=== PATIENT | female | born 1945 | race Caucasian/White ===

== ENCOUNTER → 2016-12-08 | Outpatient (CLI) | payer MEDICARE, OTHER ==
[~2016-12-08] MED LIST: ATOR20TA PO; ESOM10SU PO; HYDR-2666 PO; PROP10TA PO; TEMA15CA PO; VALA500T PO; flexeril
--- NOTE | 2016-12-08 10:34 | KCIC ---
PROCEDURE Chest CT without contrast. HISTORY Tobacco abuse. Shortness of breath. Wheezing. TECHNIQUE Computed tomographic images of the chest were obtained without contrast. One or more of the following individualized dose reduction techniques were utilized for this examination: 1. Automated exposure control; 2. Adjustment of the mA and/or kV according to patient size; 3. Use of iterative reconstruction technique. COMPARISON None. FINDINGS The heart is normal in size. The aorta is normal in caliber. There is calcified atherosclerotic plaque involving the aorta and proximal aortic arch branch vessels. There are few enlarged mediastinal lymph nodes. For reference purposes, there is a precarinal lymph node measuring 1.8 cm. There are few calcified left hilar and subcarinal granulomas. There are peripherally calcified breast implants. There is increased density surrounding the right breast implant and along the right chest wall superior to the implant. There is moderate emphysema. There is no infiltrate, effusion or pneumothorax. There is a 6 mm ground-glass nodular opacity within the left upper lobe, possibly due to volume averaging of adjacent pulmonary vessels. There is a 1 cm ground-glass opacity within the posterior right upper lobe likely due to atelectasis or scarring. There are few small faint ground-glass opacities within the left lower lobe likely due to atelectasis or scarring, the largest of which measures 6 mm. There is a 4 mm nodule along the inferior left pleural fissure, likely due to an interfissural lymph node. Evaluation of the upper abdomen demonstrates prominent renal pelvis, likely due to extra renal pelves. The gallbladder is surgically absent. There are degenerative changes throughout the spine. There is no suspicious lytic or sclerotic osseous lesion. IMPRESSION 1. Moderate emphysema. 2. Small ground-glass and nodular opacities within both lungs, the majority of which are likely due to atelectasis or scarring. The largest nodule opacity measures 6 mm within the left upper lobe. Followup can be performed according to Fleischner society criteria. 3. Prominent mediastinal lymph nodes, the largest of which which measures 1.8 cm within the precarinal location. These may be reactive or physiologic. Attention at the time of followup can be performed to confirm stability. 4. Asymmetric increased right breast parenchymal density surrounding a breast implant. Correlate with mammography findings. In a low risk patient: <4mm- No follow up required. >4-6mm- 12 month follow up, if unchanged, no further follow up. >6-8mm- 6-12 month follow up, then at 18-24 months if no change. >8mm- 3, 9, 24 month follow up or consideration of PET/CT. In a high risk patient: <4mm- 12 month follow up, if unchanged then no further follow up. >4-6mm- 6-12 month follow up, then at 18-24 months if no change. >6-8mm- 3-6 month follow up, then at 9-12 months and 24 months if no change. >8mm- 3, 9, 24 month follow up or consideration of PET/CT. Electronically signed by: Ro Murphy (Dec 08, 2016 10:32:47)
== END | disposition home or self-care (01) ==
LOC: KCIC CT 10:03
PROVIDERS: ATTEND Family Medicine
DX: J43.9 Emphysema, unspecified (principal); Z72.0 Tobacco use
CPT/HCPCS: 71250

== ENCOUNTER → 2017-04-30 | Outpatient (CLI) | payer MEDICARE ==
[~2017-04-30] MED LIST changes: -HYDR-2666 PO; +HYDR-2758 PO
--- NOTE | 2017-04-30 13:30 | KCIC ---
CT chest without contrast History: Cough.. Lung nodules. Productive cough. Technique: No intravenous contrast per request. Multiplanar reformatted images were obtained. Comparison: December 08, 2016. Exposure: One or more of the following individualized dose reduction techniques were utilized for this examination: 1. Automated exposure control 2. Adjustment of the mA and/or kV according to patient size 3. Use of iterative reconstruction technique. Findings: Vascular structures: Limited exam without contrast. No evidence of aneurysm. Mild aortic vascular calcifications. Lymph nodes: Small mediastinal lymph nodes are again identified and appears stable since prior exam. Thyroid gland:Visualized aspect is unremarkable. Heart: No significant pericadial effusion. Pleural spaces: No significant effusion Lungs: Emphysematous disease again identified. Groundglass opacity in the left upper lobe is unchanged. Groundglass opacity in the posterior aspect of the right upper lobe is unchanged. Other faint areas of previously described groundglass opacity are stable. No new large mass or dominant airspace consolidation. Trachea and central airways: Patent Calcified breast implants are again demonstrated. Asymmetric parenchymal density at the right breast is again identified. Correlate with mammography. Bones: No destructive process Upper abdomen: Slices obtained through the upper most abdomen are limited by the noncontrast technique. The lowermost slices demonstrated some calcification in the abdominal aorta, potentially some displaced intima from aortic dissection. Impression: 1. Stable appearance of groundglass opacities in both lungs. 2. No acute findings. 3. Atherosclerotic changes of the aorta. Some calcification at the lower most aspect of the visualized abdominal aorta could represent calcification overlying some mural plaque or a chronic dissection. Aortic ultrasound or contrast-enhanced CT could further evaluate if indicated. Electronically signed by: Juwan Reed MD (04/30/2017 1:27 PM) [facility]
== END | disposition home or self-care (01) ==
LOC: KCIC CT 10:24
PROVIDERS: ATTEND Family Medicine
DX: I70.0 Atherosclerosis of aorta (principal); R91.8 Other nonspecific abnormal finding of lung field
CPT/HCPCS: 71250

== ENCOUNTER → 2017-05-07 | Outpatient (CLI) | payer MEDICARE ==
--- NOTE | 2017-05-07 16:18 | KCIC ---
SCAN OF ABDOMINAL AORTA History: Smoker, aortic disease Comparison: None. Findings: Multiple grayscale, color, and duplex spectral analysis waveform images of the abdominal aorta are submitted. Proximal abdominal aorta measured up to 2.9 cm maximal axial dimension, 2 cm greatest axial dimension at the mid segment, and 1.3 cm distally. Peak systolic velocities in centimeters per second are as follows: Proximal abdominal aorta 119, mid abdominal aorta 73, distal abdominal aorta 103, right iliac artery 104, left iliac artery 126. There is diffuse hyperechoic calcified plaque of the abdominal aorta. Right common iliac artery measured up to 0.4 cm, left 0.5 cm. Impression: 1. There is slightly ectatic proximal abdominal aorta up to 2.9 cm. There is diffuse plaque. Electronically signed by: Chapin Vera MD (05/07/2017 4:15 PM) [facility]
== END | disposition home or self-care (01) ==
LOC: KCIC US 15:02
PROVIDERS: ATTEND Family Medicine
DX: I70.0 Atherosclerosis of aorta (principal); F17.200 Nicotine dependence, unspecified, uncomplicated
CPT/HCPCS: 76770

== ENCOUNTER → 2017-05-07 | Outpatient (CLI) | payer MEDICARE | END | disposition home or self-care (01) | LOC: LAB 13:49 | PROVIDERS: ATTEND Internal Medicine Pulmonary Disease | DX: I10 Essential (primary) hypertension (principal); J18.9 Pneumonia, unspecified organism | CPT/HCPCS: 36415 ==

== ENCOUNTER → 2017-08-14 | Outpatient (CLI) | payer MEDICARE | END | disposition home or self-care (01) | LOC: KCIC MRI 09:44 | DX: M54.16 Radiculopathy, lumbar region (principal); R20.0 Anesthesia of skin | CPT/HCPCS: 72148 ==

== ENCOUNTER → 2017-08-25 | Outpatient (CLI) | payer MEDICARE ==
[~2017-08-25] MED LIST changes: -ATOR20TA PO; -ESOM10SU PO; -HYDR-2758 PO; +IOHEXOL 180 MG/ML 10 ML VIAL.; -PROP10TA PO; -TEMA15CA PO; -VALA500T PO; -flexeril; +methylPREDNISolone ACETATE 40 MG/ML VIAL.; +methylPREDNISolone ACETATE 80 MG/ML VIAL.
== END | disposition home or self-care (01) ==
LOC: PNCL 10:37
DX: M51.16 Intervertebral disc disorders with radiculopathy, lumbar region (principal); I10 Essential (primary) hypertension; H91.90 Unspecified hearing loss, unspecified ear; K21.9 Gastro-esophageal reflux disease without esophagitis; Z90.710 Acquired absence of both cervix and uterus; Z90.49 Acquired absence of other specified parts of digestive tract; Z98.890 Other specified postprocedural states; Z88.0 Allergy status to penicillin; Z88.2 Allergy status to sulfonamides
CPT/HCPCS: 62323; J1030; J1040

== ENCOUNTER → 2017-09-07 | Outpatient (CLI) | payer MEDICARE ==
[2017-09-07] MEDS: IOHEXOL 300 MG/ML 50 ML VIAL. IT (13:15)
[2017-09-07] MEDS: LIDOCAINE 1% Multi-Dose 20 ML VIAL. ID (13:15)
== END | disposition home or self-care (01) ==
LOC: KCIC 12:16
DX: M48.04 Spinal stenosis, thoracic region (principal); M25.78 Osteophyte, vertebrae; M51.34 Other intervertebral disc degeneration, thoracic region; M47.894 Other spondylosis, thoracic region; J43.9 Emphysema, unspecified
CPT/HCPCS: 72129; 72255; Q9967

== ENCOUNTER → 2017-09-15 | Outpatient (CLI) | payer MEDICARE | END | disposition home or self-care (01) | LOC: PNCL 09:41 | DX: M51.16 Intervertebral disc disorders with radiculopathy, lumbar region (principal); Z88.6 Allergy status to analgesic agent; Z88.1 Allergy status to other antibiotic agents; Z88.0 Allergy status to penicillin; Z88.2 Allergy status to sulfonamides | CPT/HCPCS: 62323; J1030; J1040; Q9965 ==

== ENCOUNTER → 2018-05-03 | Outpatient (CLI) | payer MEDICARE ==
[~2018-05-03] MED LIST changes: +ATOR20TA PO; +ESOM10SU PO; +GABA-585 PO; +HYDR-2758 PO; -IOHEXOL 180 MG/ML 10 ML VIAL.; +PROP10TA PO; +TEMA15CA PO; +VALA500T PO; +flexeril; -methylPREDNISolone ACETATE 40 MG/ML VIAL.; -methylPREDNISolone ACETATE 80 MG/ML VIAL.
--- NOTE | 2018-05-03 12:41 | KCIC ---
EXAM: CT Chest without IV contrast CLINICAL HISTORY: Lung nodule, follow-up COMPARISON: 04/30/2017 TECHNIQUE: CT of the chest without intravenous contrast. Axial, coronal and sagittal reformatted images were generated. ---PQRS compliance statement - One or more of the following individualized dose reduction techniques were utilized for this study: 1. Automated exposure control 2. Adjustment of the mA and/or kV according to patient size 3. Use of iterative reconstruction technique--- FINDINGS: Lack of intravenous contrast limits evaluation of solid organs, vasculature, and lymph nodes. Chest: Heart is not enlarged. Coronary artery calcifications are seen. No pericardial effusion. An enlarged precarinal lymph node measures 1.5 x 1.1 cm. A subcarinal lymph node measures 1.1 x 0.8 cm. Within the constraints of noncontrast examination evaluation for hilar lymphadenopathy is limited. Calcified hilar lymph nodes are seen. No axillary lymphadenopathy. No pleural effusion or pneumothorax. Bilateral emphysematous changes are seen. Previously seen nodular and groundglass opacities are not as well delineated today's exam. Calcified breast implants are seen bilaterally. Visualized Upper abdomen: Cholecystectomy clips are seen. Small hiatal hernia. Bones: Mild degenerative changes of the spine are seen. No definite aggressive osseous lesion is noted. IMPRESSION: 1. Previously seen lung nodules are not well depicted on today's exam. 2. Bilateral emphysematous changes are seen. 3. Borderline enlarged precarinal lymph node, nonspecific. Electronically signed by: Joel Collins MD (05/03/2018 12:38 PM) [facility]
== END | disposition home or self-care (01) ==
LOC: KCIC CT 09:46
PROVIDERS: ATTEND Internal Medicine Pulmonary Disease
DX: J43.9 Emphysema, unspecified (principal); R59.0 Localized enlarged lymph nodes; I25.10 Atherosclerotic heart disease of native coronary artery without angina pectoris; I10 Essential (primary) hypertension; K21.9 Gastro-esophageal reflux disease without esophagitis; F17.200 Nicotine dependence, unspecified, uncomplicated; Z88.0 Allergy status to penicillin; Z88.1 Allergy status to other antibiotic agents; Z88.2 Allergy status to sulfonamides; Z88.6 Allergy status to analgesic agent; Z90.710 Acquired absence of both cervix and uterus
CPT/HCPCS: 71250

== ENCOUNTER → 2019-03-22 | Outpatient (CLI) | payer MEDICARE ==
[~2019-03-22] MED LIST changes: -HYDR-2758 PO; +HYDR-2761 PO
--- NOTE | 2019-03-22 11:50 | CARD ---
MR#: [id number] Date of Study: 03/22/2019 Ordering Physician: HERNAN GILBERT, Referring Physician: HERNAN GILBERT, Tech: Carmenza Pretty MACK APPROVED REPORT EXAM: Two-dimensional and M-mode echocardiogram with Doppler and color Doppler. Other Information Quality : Fair Technically limited study due to large breast implants INDICATION Murmur 2D DIMENSIONS RVDd2.1 (2.9-3.5cm)Left Atrium(2D)1.9 (1.6-4.0cm) IVSd0.8 (0.7-1.1cm)Aortic Root(2D)2.4 (2.0-3.7cm) LVDd3.1 (3.9-5.9cm)LVOT Diameter1.8 (1.8-2.4cm) PWd0.9 (0.7-1.1cm)LVDs1.9 (2.5-4.0cm) FS (%) 30.0 %SV26.8 ml LVEF(%)60.0 (>50%) Aortic Valve AoV Peak Jeremi.99.3cm/sAoV VTI17.9cm AO Peak GR.3.9mmHgLVOT Peak Jeremi.99.2cm/s AO Mean GR.2mmHgAVA (VMAX)2.43cm2 MYRON (VTI)2.60cm2 Mitral Valve MV E Qnwbmuum00.8cm/sMV DECEL FMRY617lw MV A Mlpcmojb418.8cm/sE/A Ratio0.6 Tricuspid Valve TR P. Rkrxzzad209lg/sRAP PYHVPBCI0dnXh TR Peak Gr.74ncCiZTNW42mbFr Pulmonary Vein S1 Sughkodk59.0cm/sD2 Hnjliapb89.1cm/s LEFT VENTRICLE The left ventricle is normal size. There is normal left ventricular wall thickness. The left ventricu lar systolic function is normal and the ejection fraction is within normal range. The Ejection Fracti on is 60-65%. There is normal LV segmental wall motion. Transmitral Doppler flow pattern is Grade I-a bnormal relaxation pattern. RIGHT VENTRICLE The right ventricle is normal size. The right ventricular systolic function is normal. ATRIA The left atrium size is normal. The right atrium size is normal. The interatrial septum is intact wit h no evidence for an atrial septal defect or patent foramen ovale as noted on 2-D or Doppler imaging. AORTIC VALVE The aortic valve is calcified but opens well. Doppler and Color Flow revealed no significant aortic r egurgitation. There is no significant aortic valvular stenosis. MITRAL VALVE The mitral valve is calcified but opens well. There is no evidence of mitral valve prolapse. There is no mitral valve stenosis. Doppler and Color Flow revealed no mitral valve regurgitation noted. TRICUSPID VALVE The tricuspid valve is normal in structure and function. Doppler and Color Flow revealed trace to mil d tricuspid regurgitation. There is mild pulmonary hypertension. The PA pressure was estimated at 33 mmHg. There is no tricuspid valve stenosis. PULMONIC VALVE The pulmonic valve is not well visualized. Doppler and Color Flow revealed no pulmonic valvular regur gitation. There is no pulmonic valvular stenosis. GREAT VESSELS The aortic root is normal in size. The ascending aorta is normal in size. The IVC is normal in size a nd collapses >50% with inspiration. PERICARDIAL EFFUSION There is no evidence of significant pericardial effusion. Critical Notification Critical Value: No <Conclusion> The left ventricular systolic function is normal and the ejection fraction is within normal range. Th e Ejection Fraction is 60-65%. There is normal LV segmental wall motion. Signed by : Krishna Artis, Electronically Approved : 03/22/2019 11:49:49
== END | disposition home or self-care (01) ==
LOC: ECHO 10:35
PROVIDERS: ATTEND Internal Medicine Cardiovascular Disease
DX: I08.3 Combined rheumatic disorders of mitral, aortic and tricuspid valves (principal); I27.20 Pulmonary hypertension, unspecified
CPT/HCPCS: 93306

== ENCOUNTER → 2019-04-04 | Outpatient (CLI) | payer MEDICARE ==
[~2019-04-04] MED LIST changes: +REGADENOSON 0.4 MG/5 ML DISP.SYRIN. IV ONE
--- NOTE | 2019-04-04 13:19 | RAD ---
MR#: [id number] Date of Study: 04/04/2019 Ordering Physician: HERNAN CORONA, Referring Physician: MERARI STRICKLAND Tech: RT Clifford Bañuelos) (N) APPROVED REPORT Test Type: Pharmacological Stress Nurse/Tech: Lluvia Kowalski R.N. Test Indications: VELEZ Cardiac History: arrythmia, htn, cad Medications: see ehr Medical History: see ehr Resting ECG: sr, 1st degree av block Resting Heart Rate: 86 bpm Resting Blood Pressure: 144/69mmHg Pretest Chest Pain: No chest pain Nurse/Tech Notes lungs cta, heart tones regular Consent: The procedure was explained to the patient in lay terms. Informed consent was witnessed. Cody eout was entered into [employer]. History and Stress Test performed by RT Edda (R) (N) Pharm. Details Pharmacologic stress testing was performed using 0.4mg per 5ml of regadenoson given intravenously ove r 7-10 seconds. Stress Symptoms No chest pain or symptoms. POST EXERCISE Reason for Termination: Infusion complete Target HR: No Max HR: 109 bpm Max Blood Pressure: 129/55mmHg Chest Pain: No. Arrhythmia: No. ST Change: No. INTERPRETATION Stress EKG Conclusion: The resting EKG shows a sinus rhythm and nonspecific ST segment changes. The stress EKG shows no significant changes from baseline. No EKG evidence of stressed induced ischemia. Imaging Protocol IMAGE PROTOCOL: Rest Tc-99m/stress Tc-99m 1 day Rest: Stress: Viability: Radiopharm.Tc99m JtlsliedgJa63j Sestamibi Wljm40sQz 33mCi Duration 13min. 13min. Img Date 04/04/2019 04/04/2019 Inj-Img Qrgm84ptz. 60min. Rest Admin Site:IV - Right AntecubitalAdministrator:NIDHI Minaya Stress Admin Site: IV - Right AntecubitalAdministrator: RT Clifford Bañuelos)(N) STRESS DATA End Diast. Vol.24.0mlLVEDV index BSA15.0ml End Syst. Vol.2.0mlLVESV index BSA1.0ml Myocardial Mass59.0gEject. Jrautqmw53.0% Stress Scores Regional WT0.00Summed WT4.00 Regional WM0.00Summed WM1.00 LV Perfusion The stress scans show no significant defects. The rest scans show no significant defects. Nuclear imaging shows no reversible ischemia or infarct. Wall Motion Intact LV systolic function with an ejection fraction of 54%. LV Perf. Quant 17 Seg. SSS0.00 17 Seg. SRS0.00 17 Seg. SDS0.00 Stress Defect Extent (% LAD)0.00Rest Defect Extent (% LAD)0.00Rev. Defect Extent (% LAD)0.00 Stress Defect Extent (% LCX) 0.00Rest Defect Extent (% LCX)10.00Rev. Defect Extent (% LCX)0.00 Stress Defect Extent (% RCA)0.00Rest Defect Extent (% RCA)0.00Rev. Defect Extent (% RCA)0.00 Stress Defect Extent (% GOPI)0.00Rest Defect Extent (% GOPI)1.70Rev. Defect Extent (% GOPI)0.00 Conclusion 1. No EKG evidence of stressed induced ischemia. 2. Nuclear imaging shows no reversible ischemia or infarct. 3. Intact LV systolic function with an ejection fraction of 54%. 4. Moderately low risk Lexiscan nuclear stress test. Signed by : Hernan Corona MD Electronically Approved : 04/04/2019 13:18:39
== END | disposition home or self-care (01) ==
LOC: NM 09:06
PROVIDERS: ATTEND Internal Medicine Cardiovascular Disease
DX: I44.0 Atrioventricular block, first degree (principal); I25.10 Atherosclerotic heart disease of native coronary artery without angina pectoris; I10 Essential (primary) hypertension; Z79.01 Long term (current) use of anticoagulants; Z87.891 Personal history of nicotine dependence
CPT/HCPCS: 78452; 93017; A9500; J2785

== ENCOUNTER → 2019-05-27 | Outpatient (CLI) | payer MEDICARE ==
[~2019-05-27] MED LIST changes: -REGADENOSON 0.4 MG/5 ML DISP.SYRIN. IV ONE
--- NOTE | 2019-05-27 10:54 | RAD ---
Chest CT without contrast Clinical indications: Lung nodule. Follow-up study. TECHNIQUE: Noncontrast helical CT scanning of the chest was performed. PQRS compliance Statement One or more of the following individualized dose reduction techniques were utilized for this study: 1. Automated exposure control 2. Adjustment of the mA and/or kV according to patient size 3. Use of iterative reconstruction technique COMPARISON: April 30, 2017. May 03, 2018. FINDINGS: Precarinal lymph node is again evident measuring 14 mm and is unchanged. No enlarging thoracic lymphadenopathy is evident. No focal aneurysmal dilatation of the thoracic aorta is seen. Heart size is normal. Calcified atheromatous disease of the coronary arteries is seen. No pericardial effusion is seen. Bilateral breast implants are again evident with calcified fibrous encapsulation. No adrenal mass is evident. Bilateral emphysema is seen. No lung nodule or lung mass or consolidative lung infiltrate is seen. Mild peripheral pulmonary fibrosis is seen which is stable. No pleural effusion or pneumothorax is evident. No lytic process is seen. IMPRESSION: Stable precarinal lymph node. This is stable over 2 years and therefore most likely is benign due to old reactive lymphadenopathy. Emphysema and mild pulmonary fibrosis. No lung nodules or lung masses or lung infiltrates are seen. Calcified atheromatous disease of the coronary arteries. Electronically signed by: Esequiel Henley MD (05/27/2019 10:51 AM) [id number]
== END | disposition home or self-care (01) ==
LOC: CT 09:27
PROVIDERS: ATTEND Internal Medicine Pulmonary Disease
DX: I25.10 Atherosclerotic heart disease of native coronary artery without angina pectoris (principal); J43.9 Emphysema, unspecified; J84.10 Pulmonary fibrosis, unspecified
CPT/HCPCS: 71250

== ENCOUNTER → 2019-07-29 | Outpatient (CLI) | payer MEDICARE ==
--- NOTE | 2019-08-03 11:45 | KCIC ---
Bilateral digital screening mammograms with 3-D tomosynthesis: Reason for examination: Routine screening. History of ruptured silicone implants replaced by saline implants in 2014. Comparison is made to previous studies dated 08/08/2016, 09/11/2015 and the limited views of the right breast from 08/18/2014. Bilateral mammograms in CC and oblique projections were obtained with 2-D imaging and 3-D tomosynthesis imaging on a Siemens Inspiration unit and reviewed on the workstation. Interpretation was made with the benefit of CAD. The skin and nipples show no abnormalities. No abnormal axillary lymph nodes are seen. Breast implants are present but show heterogeneous flocculent calcifications around the implants. There continues to be calcific/silicone density in the parenchyma of the right breast consistent with silicone extravasation. The breast parenchyma shows scattered fatty and fibroglandular density. (Breast density: Category B.) There are no new dominant masses, suspicious calcifications or architectural distortion. Benign calcifications are present. Impression: Silicone extravasation in the right breast parenchyma. Flocculent calcific density around both implants consistent with silicone from implant rupture. No evidence of malignancy. Recommend plastic surgery consultation. BI-RAD Category 2: Benign. "Our facility is accredited by the [employer] Mammography Program." This patient's information has been entered into a reminder system for the patient to be notified with the results of her examination and a target date for the next mammogram. Electronically signed by: Hali Goss MD (08/03/2019 11:42 AM) [facility]
== END | disposition home or self-care (01) ==
LOC: KCIC MAMMO 09:43
PROVIDERS: ATTEND Nurse Practitioner Family
DX: Z12.31 Encounter for screening mammogram for malignant neoplasm of breast (principal); N64.89 Other specified disorders of breast
CPT/HCPCS: 77067

== ENCOUNTER → 2019-07-29 | Outpatient (CLI) | payer MEDICARE ==
--- NOTE | 2019-07-29 16:43 | KCIC ---
CERVICAL SPINE WO CONTRAST History: Cervical radiculopathy. Left-sided. Technique: Multiplanar, multi sequential noncontrast MR imaging was performed of the cervical spine. Comparison: None Findings: Mild retrolisthesis C3 on C4 and C6 on C7. Minimal grade 1 anterolisthesis C5 on C6. Chronic anterior vertebral body wedging T2. No acute fracture. Degenerative endplate edema C5-C6 and C6-C7. Edema within the C5-C6 facets, left greater than right. Mild left perifacet edema. No pathologic signal abnormality within the cervical spinal cord. C2-C3: Central disc protrusion. Effacement of the ventral CSF space. Mild cord flattening. Dorsal CSF spaces preserved. No canal narrowing. Uncovertebral and facet arthropathy greatest on the left. Mild left neuroforaminal narrowing. No right neuroforaminal narrowing. C3-C4: Posterior disc osteophyte complex. Minimal canal narrowing. Mild cord flattening. Uncovertebral and facet arthropathy. Mild bilateral neural foraminal narrowing. C4-C5: Posterior disc osteophyte complex eccentric to the left. Mild cord flattening. Mild canal narrowing. Left uncovertebral and facet arthropathy. Moderate to severe left neural foraminal narrowing. C5-C6: Posterior disc osteophyte complex. Moderate canal narrowing. Cord flattening. Uncovertebral and facet arthropathy. Mild to moderate left and mild right neuroforaminal narrowing. C6-C7: Posterior disc osteophyte complex. Mild canal narrowing. Cord flattening. No neuroforaminal narrowing. C7-T1: No canal or neuroforaminal narrowing. Impression: 1. Moderate multilevel thoracic spondylosis with canal narrowing and cord flattening most prominent C5-C6. 2. C5-C6 advanced facet arthropathy with degenerative edema and prominent left perifacet edema. 3. Multilevel neural foraminal narrowing most prominent left C4-C5 and C5-C6. Electronically signed by: Odin Muniz DO (07/29/2019 4:41 PM) [facility]
== END | disposition home or self-care (01) ==
LOC: KCIC MRI 10:15
PROVIDERS: ATTEND Anesthesiology
DX: M50.21 Other cervical disc displacement, high cervical region (principal); M48.02 Spinal stenosis, cervical region; M47.812 Spondylosis without myelopathy or radiculopathy, cervical region; M25.78 Osteophyte, vertebrae; M12.88 Other specific arthropathies, not elsewhere classified, other specified site
CPT/HCPCS: 72141

== ENCOUNTER → 2019-10-19 | Outpatient (CLI) | payer MEDICARE ==
[~2019-10-19] MED LIST changes: -VALA500T PO; +VALA500T9 PO
--- NOTE | 2019-10-19 15:27 | KCIC ---
HIP RIGHT 2 VIEW DATE: 10/19/2019 12:00 AM INDICATION: Hip pain COMPARISON: None. FINDINGS: Bones: There is no evidence of acute fracture or dislocation. Joints: Mild degenerative changes of the hip. Miscellaneous: None. IMPRESSION: No acute fracture. Mild degenerative changes. Electronically signed by: Chapin Hoffman MD (10/19/2019 3:24 PM) [id number]
== END ==
LOC: KCIC 12:32
PROVIDERS: ATTEND Anesthesiology
DX: M16.11 Unilateral primary osteoarthritis, right hip (principal)
CPT/HCPCS: 73502

== ENCOUNTER 2020-03-21 11:27 | Inpatient (IN) | payer MEDICARE ==
[~2020-03-21] VITALS: Ht 160 cm; Wt 57.5 kg
[2020-03-21 12:17] LABS: BASO # 0.1 x10^3/uL (0.0-0.2); BASO % 1 % (0-3); EOS # 0.1 x10^3/uL (0.0-0.7); EOS % 2 % (0-3); HEMATOCRIT 38.9 % (36.0-47.0); HEMOGLOBIN 13.1 g/dL (12.0-15.5); LYMPH # 1.2 x10^3/uL (1.0-4.8); LYMPH % 13 % (24-48); MEAN CORPUSCULAR HEMOGLOBIN 33 pg (25-35); MEAN CORPUSCULAR HGB CONC 34 g/dL (31-37); MEAN CORPUSCULAR VOLUME 98 fL (79-100); MONO # 0.7 x10^3/uL (0.0-1.1); MONO % 7 % (0-9); NEUT # 7.4 x10^3/uL (1.8-7.7); NEUT % 78 % (31-73); PLATELET COUNT 249 x10^3/uL (140-400); RED BLOOD COUNT 3.96 x10^6/uL (3.50-5.40); RED CELL DISTRIBUTION WIDTH 13.8 % (11.5-14.5); WHITE BLOOD COUNT 9.5 x10^3/uL (4.0-11.0)
[2020-03-21 12:37] LABS: CALCIUM 8.2 mg/dL (8.5-10.1); CREATININE 0.8 mg/dL (0.6-1.0); GFR 70.3; MAGNESIUM 0.8 mg/dL (1.8-2.4); PHOSPHORUS 3.2 mg/dL (2.6-4.7)
[2020-03-21 12:40] LABS: POTASSIUM 2.7 mmol/L (3.5-5.1)
[2020-03-21] MEDS ORDERED: MAGNESIUM SULFATE 2GM 50 ML IV ONE (12:45)
--- NOTE | 2020-03-21 12:51 | PHYS DOC ---
Past Medical History Past Medical History: Cancer, GERD Additional Past Medical Histor: HEART PALPATATIONS, CERVICAL CANCER, MITRIAL VALVE PROLAPSE, SHINGLES Past Surgical History: Cholecystectomy, Other Additional Past Surgical Histo: cervical ca, BREAST IMPLANTS Smoking Status: Former Smoker Alcohol Use: None Drug Use: None General Adult EDM: Chief Complaint: ABNORMAL LABS HPI: HPI: The history was obtained from the patient and Dr. Martin. Patient is a 74 old female with PMH notable for multiple comorbidities including hypertension and palpitations who presents with a chief complaint of lab abnormality. Patient was instructed reported emergency department by her negative spotter Dr. Martin for lab abnormalities. Per Dr. Martin the patient has had intractable hypokalemia and hypomagnesia over the past several weeks. He states they have been trying to manage this outpatient. He states that a recent lab draws showed persistent hypokalemia and hypomagnesia. He states that she feels she would best be treated via hospitalization and further work-up of her electrolyte abnormalities. Patient denies any diarrhea. She does note some mild abdominal discomfort related to her heartburn. She states that she does take Nexium and Pepcid daily. She states that she has had overall very low oral intake. She denies any syncope. Denies any chest pain or shortness of breath to me. She does note occasional feelings of palpitations but has none currently. No further complaints. Review of Systems: Review of Systems: Constitutional: Denies fever or chills. [] Eyes: Denies change in visual acuity. [] HENT: Denies nasal congestion or sore throat. [] Respiratory: Denies cough or shortness of breath. [] Cardiovascular: Denies chest pain or edema. [] GI: Denies abdominal pain, nausea, vomiting, bloody stools or diarrhea. [] : Denies dysuria. [] Musculoskeletal: Denies back pain or joint pain. [] Integument: Denies rash. [] Neurologic: Denies headache, focal weakness or sensory changes. [] Endocrine: Denies polyuria or polydipsia. [] Lymphatic: Denies swollen glands. [] Psychiatric: Denies depression or anxiety. [] Heart Score: Risk Factors: Risk Factors: DM, Current or recent (<one month) smoker, HTN, HLP, family history of CAD, obesity. Risk Scores: Score 0 - 3: 2.5% MACE over next 6 weeks - Discharge Home Score 4 - 6: 20.3% MACE over next 6 weeks - Admit for Clinical Observation Score 7 - 10: 72.7% MACE over next 6 weeks - Early Invasive Strategies Current Medications: Current Medications Medications (Trade) Dose Ordered Sig/Antwan Start Time Stop Time Status Last Admin Dose Admin Magnesium Sulfate 50 ml @ 25 mls/hr 1X ONCE 03/21/20 12:45 03/21/20 14:44 UNV Potassium Chloride/Sodium Chloride 1,000 ml @ 1,000 mls/hr Q1H ONCE 03/21/20 12:45 03/21/20 13:44 UNV Allergies: Allergies: Allergies Coded Allergies Type Severity Reaction Last Updated Verified Penicillins Allergy Severe 02/21/20 Yes Sulfa (Sulfonamide Antibiotics) Allergy Intermediate 02/21/20 Yes clarithromycin Allergy Intermediate 02/21/20 Yes morphine Allergy Intermediate 02/21/20 Yes Physical Exam: PE: Constitutional: Well developed, well nourished, no acute distress, non-toxic appearance. [] HENT: Normocephalic, atraumatic, bilateral external ears normal, oropharynx moist, no oral exudates, nose normal. [] Eyes: PERRLA, EOMI, conjunctiva normal, no discharge. [] Neck: Normal range of motion, no tenderness, supple, no stridor. [] Cardiovascular:Heart rate regular rhythm, no murmur [] Lungs & Thorax: Bilateral breath sounds clear to auscultation [] Abdomen: Soft, nontender, nonacute abdomen. No involuntary guarding or rigidity noted. No acute peritonitis. Skin: Warm, dry, no erythema, no rash. [] Back: No tenderness, no CVA tenderness. [] Extremities: No tenderness, no cyanosis, no clubbing, ROM intact, no edema. [] Neurologic: Alert and oriented X 3, normal motor function, normal sensory function, no focal deficits noted. [] Psychologic: Affect normal, judgement normal, mood normal. [] Current Patient Data: Labs: Laboratory Tests Test 03/21/20 11:55 White Blood Count 9.5 x10^3/uL (4.0-11.0) Red Blood Count 3.96 x10^6/uL (3.50-5.40) Hemoglobin 13.1 g/dL (12.0-15.5) Hematocrit 38.9 % (36.0-47.0) Mean Corpuscular Volume 98 fL (79-100) Mean Corpuscular Hemoglobin 33 pg (25-35) Mean Corpuscular Hemoglobin Concent 34 g/dL (31-37) Red Cell Distribution Width 13.8 % (11.5-14.5) Platelet Count 249 x10^3/uL (140-400) Neutrophils (%) (Auto) 78 % (31-73) H Lymphocytes (%) (Auto) 13 % (24-48) L Monocytes (%) (Auto) 7 % (0-9) Eosinophils (%) (Auto) 2 % (0-3) Basophils (%) (Auto) 1 % (0-3) Neutrophils # (Auto) 7.4 x10^3/uL (1.8-7.7) Lymphocytes # (Auto) 1.2 x10^3/uL (1.0-4.8) Monocytes # (Auto) 0.7 x10^3/uL (0.0-1.1) Eosinophils # (Auto) 0.1 x10^3/uL (0.0-0.7) Basophils # (Auto) 0.1 x10^3/uL (0.0-0.2) Sodium Level 141 mmol/L (136-145) Potassium Level 2.7 mmol/L (3.5-5.1) *L Chloride Level 102 mmol/L (98-107) Carbon Dioxide Level 28 mmol/L (21-32) Anion Gap 11 (6-14) Blood Urea Nitrogen 8 mg/dL (7-20) Creatinine 0.8 mg/dL (0.6-1.0) Estimated GFR (Cockcroft-Gault) 70.3 Glucose Level 96 mg/dL (70-99) Calcium Level 8.2 mg/dL (8.5-10.1) L Phosphorus Level 3.2 mg/dL (2.6-4.7) Magnesium Level 0.8 mg/dL (1.8-2.4) L Thyroid Stimulating Hormone (TSH) 3.762 uIU/mL (0.358-3.74) H Laboratory Tests 03/21/20 11:55 Laboratory Tests 03/21/20 11:55 Vital Signs: Vital Signs Date Time Temp Pulse Resp B/P (MAP) Pulse Ox O2 Delivery O2 Flow Rate FiO2 03/21/20 11:39 97.8 103 18 137/89 (105) 99 Room Air 97.8 EKG: EKG: EKG consistent with normal sinus rhythm. Ventricular rate of 86 bpm. Dexter normal. Intervals normal. Flattened T wave in lead III. No acute ischemic changes appreciated. [] Radiology/Procedures: Radiology/Procedures: [] Course & Med Decision Making: Course & Med Decision Making Pertinent Labs and Imaging studies reviewed. (See chart for details) Patient is a very pleasant 74-year-old female who presents with a chief complaint of lab abnormality. Initial vital signs unremarkable. EKG with abnormalities related to electrolytes. Potassium today is 2.7. Magnesium 0.7. Replacement was initiated in the emergency department. The patient has had refractory hypokalemia and hypomagnesia that he feels reasonable to hospitalize patient for further work-up. Signout given to hospitalist. Jodie Disclaimer: Jodie Disclaimer: This electronic medical record was generated, in whole or in part, using a voice recognition dictation system. Departure Departure Impression: Primary Impression: Hypokalemia Additional Impression: Hypomagnesemia Disposition: ADMITTED INPATIENT Condition: GOOD Referrals: LINDA SETHI APRN (PCP) Justicifation of Admission Dx: Justifications for Admission: Justification of Admission Dx: Yes Chronic Renal Failure: Electrolyte Abnormality NELSON BARAHONA DO Mar 21, 2020 12:51
[2020-03-21] MEDS: POTASSIUM CHLORIDE 10MEQ 100 ML IV SCH ×6 (13:11→19:28)
[2020-03-21] MEDS ORDERED: IV NORMAL SALINE 1000ML BAG 1,000 ML IV ONE (13:15)
[2020-03-21 13:50] VITALS: BP 141/90
--- NOTE | 2020-03-21 14:20 | EKG ---
[facility] [address] [place] [address] Test Date: 2020-03-21 Test Time: 13:02:08 Pat Name: DOMONIQUE JOYNER Department: Room: Gender: F [employer]: : 1945 Requested By: NELSON BARAHONA Order Number: [id number] Reading MD: Measurements Intervals [place] Rate: 86 P: 63 AK: 172 QRS: 49 QRSD: 72 T: 46 QT: 376 QTc: 453 Interpretive Statements SINUS RHYTHM NO SPECIFIC ECG ABNORMALITIES RI6.01 No previous ECG available for comparison
[2020-03-21 15:00] VITALS: BP 151/72
[2020-03-21] MEDS ORDERED: ATOR40TA59 PO (15:00)
[2020-03-21] MEDS ORDERED: ONDA4TAB12 PO (15:00)
[2020-03-21] MEDS ORDERED: TEMA15CA PO (15:00)
[2020-03-21] MEDS ORDERED: MECO10005 PO (15:00)
[2020-03-21] MEDS ORDERED: FLAX10003 PO (15:00)
[2020-03-21] MEDS ORDERED: VALA10008 PO ×2 (15:00→15:04)
[2020-03-21] MEDS ORDERED: FAMO40TA4 PO (15:00)
[2020-03-21] MEDS ORDERED: DIPH25CA58 PO (15:00)
[2020-03-21] MEDS ORDERED: OMEG1CAP38 PO (15:00)
[2020-03-21] MEDS ORDERED: UBID100C26 PO (15:00)
[2020-03-21] MEDS ORDERED: AMLO5TAB10 PO (15:00)
[2020-03-21] MEDS ORDERED: PANT20TA2 PO (15:00)
[2020-03-21] MEDS ORDERED: ASPI-630 PO (15:00)
[2020-03-21] MEDS ORDERED: BIOT5000 PO (15:00)
[2020-03-21] MEDS ORDERED: CYCL10TA2 PO (15:00)
[2020-03-21] MEDS ORDERED: MAGNESIUM SULFATE 4GM 100 ML IV ONE (15:30)
[2020-03-21] MEDS ORDERED: POTASSIUM CHLORIDE 20 MEQ TABLET.ER. PO ONE (15:30)
--- NOTE | 2020-03-21 15:31 | PDOC2 ---
CONSULT Date of Consult Date of Consult DATE: 03/21/20 TIME: 15:21 Reason for Consult Reason for Consult: PSVT, palpitations Referring Physician Referring Physician: Dr. Simon Identification/Chief Complaint Chief Complaint palpitations Source Source: Chart review, Patient History of Present Illness Reason for Visit: The patient is a 74-year-old female who is been followed in cardiology office as an outpatient for history of hypertension and palpitations. A nuclear stress test at [facility] in 2016 was normal with an intact LV function. Echocardiogram the same year showed intact LV function with trace mitral and trace tricuspid regurgitation. No mitral valve prolapse was identified. On our last clinic visit approximately a month ago the patient reports some episodes of palpitations. An outpatient monitor was placed and showed brief episodes of supraventricular tachycardia. Further testing included an updated echocardiogram from 03/22/19 with a normal ejection fraction and mild tricuspid regurgitation. Lexiscan testing on 04/04/2019 was normal. Lab testing approximately 1 month ago showed severe hypomagnesemia at 0.7 and hypokalemia at 3.1. She was given outpatient IV magnesium as well as supplemental potassium. In follow-up in the office yesterday the patient was feeling better. We however rechecked her labs which was available early this morning and it again showed severe hypomagnesemia at 0.7 and continued hypokalemia. She was asked to go to the emergency room for further treatment and a more urgent evaluation secondary to her persistent hypomagnesemia and hypokalemia of uncertain etiology. She remains feeling comfortable. Past Medical History Cardiovascular: HTN, Hyperlipidemia, Other (Mild mitral regurgitation, brief episodes of supraventricular tachycardia) Heme/Onc: Cancer Past Surgical History Past Surgical History: Cholecystectomy, Other (Breast implants. Procedure for cervical cancer) Family History Family History: Hypertension Social History Quit ALCOHOL: none Current Problem List Problem List Problems Medical Problems: (1) Hypokalemia Status: Acute (2) Hypomagnesemia Status: Acute Current Medications Current Medications Current Medications Potassium Chloride/Water 100 ml @ 100 mls/hr Q1H IV Last administered on 03/21/20at 13:11; Start 03/21/20 at 13:00; Stop 03/21/20 at 18:59 Magnesium Sulfate 50 ml @ 25 mls/hr 1X ONCE IV Last administered on 03/21/20at 13:10; Start 03/21/20 at 12:45; Stop 03/21/20 at 14:44; Status DC Sodium Chloride 1,000 ml @ 100 mls/hr 1X ONCE IV Last administered on 03/21/20at 13:12; Start 03/21/20 at 13:15; Stop 03/21/20 at 23:14 Active Scripts Active Reported Valacyclovir (Valacyclovir Hcl) 1,000 Mg Tablet 1,000 Mg PO DAILY Ondansetron Odt (Ondansetron) 4 Mg Tab.rapdis 1 Tab PO PRN Q8HRS PRN Famotidine 40 Mg Tablet 40 Mg PO HS Protonix (Pantoprazole Sodium) 20 Mg Tablet.dr 40 Mg PO DAILY Coq-10 (Ubidecarenone) 100 Mg Capsule 400 Mg PO DAILY B12 Active (Mecobalamin) 1,000 Mcg Tab.chew 1,000 Mcg PO DAILY Benadryl (Diphenhydramine Hcl) 25 Mg Capsule 50 Mg PO TID PRN Aspirin 81 Mg Tab.chew 81 Mg PO DAILY Flax Oil (Flaxseed Oil) 1,000 Mg Capsule 1,200 Mg PO DAILY [place] 3 Fish Oil Softgel ([place]-3 Fatty Acids/Fish Oil) 1 Each Capsule.dr 1 Each PO DAILY Biotin 5,000 Mcg Tab.rapdis 1 Tab PO DAILY 30 Days Cyclobenzaprine Hcl 10 Mg Tablet 1 Tab PO TID Atorvastatin Calcium 40 Mg Tablet 80 Mg PO HS Amlodipine Besylate 5 Mg Tablet 5 Mg PO DAILY Temazepam 15 Mg Capsule 1 Cap PO QHS Hydrocodone-Apap 5-325 (Hydrocodone Bit/Acetaminophen) 1 Each Tablet 1 Each PO Allergies Allergies: Coded Allergies: Penicillins (Verified Allergy, Severe, 02/21/20) Sulfa (Sulfonamide Antibiotics) (Verified Allergy, Intermediate, 02/21/20) clarithromycin (Verified Allergy, Intermediate, 02/21/20) morphine (Verified Allergy, Intermediate, 02/21/20) ROS General: YES: Fatigue Cardiovascular: yes Palpitations Physical Exam General: No acute distress HEENT: Atraumatic Lungs: Clear to auscultation Heart: Regular rate, Other (1/6 systolic murmur) Abdomen: Normal bowel sounds Vitals VITALS Vital Signs Date Time Temp Pulse Resp B/P (MAP) Pulse Ox O2 Delivery O2 Flow Rate FiO2 03/21/20 13:14 84 18 162/81 (108) 97 Room Air 85/20 11:39 97.8 97.8 Labs Labs Laboratory Tests Test 03/21/20 11:55 White Blood Count 9.5 x10^3/uL (4.0-11.0) Red Blood Count 3.96 x10^6/uL (3.50-5.40) Hemoglobin 13.1 g/dL (12.0-15.5) Hematocrit 38.9 % (36.0-47.0) Mean Corpuscular Volume 98 fL (79-100) Mean Corpuscular Hemoglobin 33 pg (25-35) Mean Corpuscular Hemoglobin Concent 34 g/dL (31-37) Red Cell Distribution Width 13.8 % (11.5-14.5) Platelet Count 249 x10^3/uL (140-400) Neutrophils (%) (Auto) 78 % (31-73) Lymphocytes (%) (Auto) 13 % (24-48) Monocytes (%) (Auto) 7 % (0-9) Eosinophils (%) (Auto) 2 % (0-3) Basophils (%) (Auto) 1 % (0-3) Neutrophils # (Auto) 7.4 x10^3/uL (1.8-7.7) Lymphocytes # (Auto) 1.2 x10^3/uL (1.0-4.8) Monocytes # (Auto) 0.7 x10^3/uL (0.0-1.1) Eosinophils # (Auto) 0.1 x10^3/uL (0.0-0.7) Basophils # (Auto) 0.1 x10^3/uL (0.0-0.2) Sodium Level 141 mmol/L (136-145) Potassium Level 2.7 mmol/L (3.5-5.1) Chloride Level 102 mmol/L (98-107) Carbon Dioxide Level 28 mmol/L (21-32) Anion Gap 11 (6-14) Blood Urea Nitrogen 8 mg/dL (7-20) Creatinine 0.8 mg/dL (0.6-1.0) Estimated GFR (Cockcroft-Gault) 70.3 Glucose Level 96 mg/dL (70-99) Calcium Level 8.2 mg/dL (8.5-10.1) Phosphorus Level 3.2 mg/dL (2.6-4.7) Magnesium Level 0.8 mg/dL (1.8-2.4) Thyroid Stimulating Hormone (TSH) 3.762 uIU/mL (0.358-3.74) Laboratory Tests Test 03/21/20 11:55 White Blood Count 9.5 x10^3/uL (4.0-11.0) Red Blood Count 3.96 x10^6/uL (3.50-5.40) Hemoglobin 13.1 g/dL (12.0-15.5) Hematocrit 38.9 % (36.0-47.0) Mean Corpuscular Volume 98 fL (79-100) Mean Corpuscular Hemoglobin 33 pg (25-35) Mean Corpuscular Hemoglobin Concent 34 g/dL (31-37) Red Cell Distribution Width 13.8 % (11.5-14.5) Platelet Count 249 x10^3/uL (140-400) Neutrophils (%) (Auto) 78 % (31-73) Lymphocytes (%) (Auto) 13 % (24-48) Monocytes (%) (Auto) 7 % (0-9) Eosinophils (%) (Auto) 2 % (0-3) Basophils (%) (Auto) 1 % (0-3) Neutrophils # (Auto) 7.4 x10^3/uL (1.8-7.7) Lymphocytes # (Auto) 1.2 x10^3/uL (1.0-4.8) Monocytes # (Auto) 0.7 x10^3/uL (0.0-1.1) Eosinophils # (Auto) 0.1 x10^3/uL (0.0-0.7) Basophils # (Auto) 0.1 x10^3/uL (0.0-0.2) Sodium Level 141 mmol/L (136-145) Potassium Level 2.7 mmol/L (3.5-5.1) Chloride Level 102 mmol/L (98-107) Carbon Dioxide Level 28 mmol/L (21-32) Anion Gap 11 (6-14) Blood Urea Nitrogen 8 mg/dL (7-20) Creatinine 0.8 mg/dL (0.6-1.0) Estimated GFR (Cockcroft-Gault) 70.3 Glucose Level 96 mg/dL (70-99) Calcium Level 8.2 mg/dL (8.5-10.1) Phosphorus Level 3.2 mg/dL (2.6-4.7) Magnesium Level 0.8 mg/dL (1.8-2.4) Thyroid Stimulating Hormone (TSH) 3.762 uIU/mL (0.358-3.74) Assessment/Plan Assessment/Plan 1. Severe electrolyte abnormalities of uncertain etiology. Patient's magnesium level has been at 0.7 over the past month despite IV replacement 4 weeks ago. Potassium is also continue to be low at 2.7 despite oral potassium supplementation. Creatinine is 0.8. In the setting of her continued and severe electrolyte abnormalities the patient was sent to the emergency room and evaluated for further work-up. Of note she does report a history of GI problems but at this time denies chronic constipation or diarrhea. She denies any history of renal disease or abnormalities. 2. Mild palpitations. Outpatient monitor over the last several weeks shows brief episodes of supraventricular tachycardia. We will continue on telemetry. 3. Hypertension. Controlled on present treatment. Normal LV systolic function. 4. Hyperlipidemia. Patient has been treated with statins. Thank you for allowing us to participate in the care of your patient. HERNAN GILBERT MD Mar 21, 2020 15:31
[2020-03-21] MEDS ORDERED: diphenhydrAMINE HCL 25 MG CAPSULE PO PRN (17:00)
[2020-03-21] MEDS: HYDROcodone/APAP 5/325MG 1 TAB TABLET PO PRN (17:56)
--- NOTE | 2020-03-21 18:53 | PDOC1 ---
History and Physical Date of Service: DOS: DATE: 03/21/20 TIME: 18:51 Chief Complaint: Problems: (1) Hypokalemia (2) Hypomagnesemia Chief Complain: Abnormal labs History of Present Illness: HPI: This is a 74-year-old female who appears younger than her stated age She was told by Dr. Og to come on over to the ER because her electrolytes just will not correct In particular her potassium consistently runs low and her magnesium has been around 0.7 for the past 4 weeks despite replacement I discussed the case with the ER physician We cannot replace her electrolytes and consult nephrology Past Medical/Surgical History: PMH/PSH: Past Medical History: Persistent electrolyte disturbances please see above cancer, GERD Additional Past Medical Histor: HEART PALPATATIONS, CERVICAL CANCER, MITRIAL VALVE PROLAPSE, SHINGLES Past Surgical History: Cholecystectomy, Other Additional Past Surgical Histo: cervical ca, BREAST IMPLANTS Smoking Status: Former Smoker Allergies: Allergies: Coded Allergies: Penicillins (Verified Allergy, Severe, 02/21/20) Sulfa (Sulfonamide Antibiotics) (Verified Allergy, Intermediate, 02/21/20) clarithromycin (Verified Allergy, Intermediate, 02/21/20) morphine (Verified Allergy, Intermediate, 02/21/20) Family History: Family History: Diabetes Social History: Social History: She is to smoke or drink or drugs Current Medications: Current Medications Current Medications Potassium Chloride/Water 100 ml @ 100 mls/hr Q1H IV Last administered on 03/21/20at 17:58; Start 03/21/20 at 13:00; Stop 03/21/20 at 18:59 Magnesium Sulfate 50 ml @ 25 mls/hr 1X ONCE IV Last administered on 03/21/20at 13:10; Start 03/21/20 at 12:45; Stop 03/21/20 at 14:44; Status DC Sodium Chloride 1,000 ml @ 100 mls/hr 1X ONCE IV Last administered on 03/21/20at 13:12; Start 03/21/20 at 13:15; Stop 03/21/20 at 23:14 Magnesium Sulfate 100 ml @ 25 mls/hr 1X ONCE IV Last administered on 03/21/20at 15:33; Start 03/21/20 at 15:30; Stop 03/21/20 at 19:29 Potassium Chloride (Klor-Con) 40 meq 1X ONCE PO Last administered on 03/21/20at 15:57; Start 03/21/20 at 15:30; Stop 03/21/20 at 15:31; Status DC Amlodipine Besylate (Norvasc) 5 mg DAILY PO ; Start 03/22/20 at 09:00 Aspirin (Aspirin Chewable) 81 mg DAILY PO ; Start 03/22/20 at 09:00 Atorvastatin Calcium (Lipitor) 80 mg HS PO ; Start 03/21/20 at 21:00 Cyclobenzaprine HCl (Flexeril) 10 mg TID PO ; Start 03/21/20 at 21:00 Diphenhydramine HCl (Benadryl) 50 mg PRN TID PRN PO ITCHING; Start 03/21/20 at 17:00 Acetaminophen/ Hydrocodone Bitart (Lortab 5/325) 1 tab PRN Q6HRS PRN PO PAIN Last administered on 03/21/20at 17:56; Start 03/21/20 at 17:00 Temazepam (Restoril) 15 mg QHS PO ; Start 03/21/20 at 21:00 Non-Formulary Medication (Biotin ) 1 tab DAILY PO ; Start 03/22/20 at 09:00; Status UNV Famotidine (Pepcid) 40 mg HS PO ; Start 03/21/20 at 21:00 Non-Formulary Medication (Flaxseed Oil (Flax Oil)) 1,200 mg DAILY PO ; Start 03/22/20 at 09:00; Status UNV Cyanocobalamin (Vitamin B-12) 1,000 mcg DAILY PO ; Start 03/22/20 at 09:00 Fish Oil (Fish Oil) 1,000 mg DAILY PO ; Start 03/22/20 at 09:00 Pantoprazole Sodium (Protonix) 40 mg DAILYAC PO ; Start 03/22/20 at 07:30 Non-Formulary Medication (Ubidecarenone (Coq-10)) 400 mg DAILY PO ; Start 03/22/20 at 09:00; Status UNV Valacyclovir HCl (Valtrex) 1,000 mg QD PO ; Start 03/22/20 at 09:00 Active Scripts Active Reported Valacyclovir (Valacyclovir Hcl) 1,000 Mg Tablet 1,000 Mg PO DAILY Ondansetron Odt (Ondansetron) 4 Mg Tab.rapdis 1 Tab PO PRN Q8HRS PRN Famotidine 40 Mg Tablet 40 Mg PO HS Protonix (Pantoprazole Sodium) 20 Mg Tablet.dr 40 Mg PO DAILY Coq-10 (Ubidecarenone) 100 Mg Capsule 400 Mg PO DAILY B12 Active (Mecobalamin) 1,000 Mcg Tab.chew 1,000 Mcg PO DAILY Benadryl (Diphenhydramine Hcl) 25 Mg Capsule 50 Mg PO TID PRN Aspirin 81 Mg Tab.chew 81 Mg PO DAILY Flax Oil (Flaxseed Oil) 1,000 Mg Capsule 1,200 Mg PO DAILY [place] 3 Fish Oil Softgel ([place]-3 Fatty Acids/Fish Oil) 1 Each Capsule.dr 1 Each PO DAILY Biotin 5,000 Mcg Tab.rapdis 1 Tab PO DAILY 30 Days Cyclobenzaprine Hcl 10 Mg Tablet 1 Tab PO TID Atorvastatin Calcium 40 Mg Tablet 80 Mg PO HS Amlodipine Besylate 5 Mg Tablet 5 Mg PO DAILY Temazepam 15 Mg Capsule 1 Cap PO QHS Hydrocodone-Apap 5-325 (Hydrocodone Bit/Acetaminophen) 1 Each Tablet 1 Each PO ROS: Review of Systems Review of System REVIEW OF SYSTEMS: GENERAL: Complains of weakness SKIN: No bruising, hair changes or rashes. EYES: No blurred, double or loss of vision. NOSE AND THROAT: No history of nosebleeds, hoarseness or sore throat. HEART: No history of palpitations, chest pain or shortness of breath on exertion. LUNGS: Denies cough, hemoptysis, wheezing or shortness of breath. GASTROINTESTINAL: Denies changes in appetite, nausea, vomiting, diarrhea or constipation. GENITOURINARY: No history of frequency, urgency, hesitancy or nocturia. NEUROLOGIC: Denies history of numbness, tingling, or tremor. PSYCHIATRIC: No history of panic, anxiety or depression. ENDOCRINE: No history of heat or cold intolerance, polyuria or polydipsia. EXTREMITIES: Denies joint pain, pain on walking or stiffness. Physical Exam: Vital Signs: Vital Signs Date Time Temp Pulse Resp B/P (MAP) Pulse Ox O2 Delivery O2 Flow Rate FiO2 03/21/20 17:56 18 97 Room Air 03/21/20 15:00 97.9 85 151/72 (98) 97.9 Physcial Exam: GEN: No apparent distress. Alert and oriented HEENT: Normal cephalic, atraumatic, external auditory canals are patent EYES: Extraocular muscles are intact, pupil are equally round and reactive to light and accommodation MUSCULOSKELETAL: Well developed , well nourished, good range of motion ENDOCRINE: No thyromegaly was palpated LYMPHATICS: No cervical chain or axillary nodes were noted HEMATOPOIETIC: No bruising NECK: Supple, no JVD, no thyromegaly was noted LUNGS: Clear to auscultation in all lung mont[place] without rhonchi or wheezing HEART: RRR, S!, S2 present. Peripheral pulses intact, no obvious murmurs noted ABDOMEN: Soft, nontender. Positive bowel sounds, no organomegaly, normal bowel sounds EXTREMITIES: Without clubbing, cyanosis, or edema. Pedal pulses intact. Negative Homans sign NEUROLOGIC: Normal speech and tone. A&O x 3, moves all extremities, no obvious focal deficits PSYCHIATRIC: Normal affect, normal mood. Stable SKIN: No ulcerations or rashes, good skin turgor, no jaundice VASCULAR: Good capillary refill, neurovascular bundle appears to be intact Labs: Labs: Laboratory Tests Test 03/21/20 11:55 White Blood Count 9.5 x10^3/uL (4.0-11.0) Red Blood Count 3.96 x10^6/uL (3.50-5.40) Hemoglobin 13.1 g/dL (12.0-15.5) Hematocrit 38.9 % (36.0-47.0) Mean Corpuscular Volume 98 fL (79-100) Mean Corpuscular Hemoglobin 33 pg (25-35) Mean Corpuscular Hemoglobin Concent 34 g/dL (31-37) Red Cell Distribution Width 13.8 % (11.5-14.5) Platelet Count 249 x10^3/uL (140-400) Neutrophils (%) (Auto) 78 % (31-73) Lymphocytes (%) (Auto) 13 % (24-48) Monocytes (%) (Auto) 7 % (0-9) Eosinophils (%) (Auto) 2 % (0-3) Basophils (%) (Auto) 1 % (0-3) Neutrophils # (Auto) 7.4 x10^3/uL (1.8-7.7) Lymphocytes # (Auto) 1.2 x10^3/uL (1.0-4.8) Monocytes # (Auto) 0.7 x10^3/uL (0.0-1.1) Eosinophils # (Auto) 0.1 x10^3/uL (0.0-0.7) Basophils # (Auto) 0.1 x10^3/uL (0.0-0.2) Sodium Level 141 mmol/L (136-145) Potassium Level 2.7 mmol/L (3.5-5.1) Chloride Level 102 mmol/L (98-107) Carbon Dioxide Level 28 mmol/L (21-32) Anion Gap 11 (6-14) Blood Urea Nitrogen 8 mg/dL (7-20) Creatinine 0.8 mg/dL (0.6-1.0) Estimated GFR (Cockcroft-Gault) 70.3 Glucose Level 96 mg/dL (70-99) Calcium Level 8.2 mg/dL (8.5-10.1) Phosphorus Level 3.2 mg/dL (2.6-4.7) Magnesium Level 0.8 mg/dL (1.8-2.4) Thyroid Stimulating Hormone (TSH) 3.762 uIU/mL (0.358-3.74) Laboratory Tests Test 03/21/20 11:55 White Blood Count 9.5 x10^3/uL (4.0-11.0) Red Blood Count 3.96 x10^6/uL (3.50-5.40) Hemoglobin 13.1 g/dL (12.0-15.5) Hematocrit 38.9 % (36.0-47.0) Mean Corpuscular Volume 98 fL (79-100) Mean Corpuscular Hemoglobin 33 pg (25-35) Mean Corpuscular Hemoglobin Concent 34 g/dL (31-37) Red Cell Distribution Width 13.8 % (11.5-14.5) Platelet Count 249 x10^3/uL (140-400) Neutrophils (%) (Auto) 78 % (31-73) Lymphocytes (%) (Auto) 13 % (24-48) Monocytes (%) (Auto) 7 % (0-9) Eosinophils (%) (Auto) 2 % (0-3) Basophils (%) (Auto) 1 % (0-3) Neutrophils # (Auto) 7.4 x10^3/uL (1.8-7.7) Lymphocytes # (Auto) 1.2 x10^3/uL (1.0-4.8) Monocytes # (Auto) 0.7 x10^3/uL (0.0-1.1) Eosinophils # (Auto) 0.1 x10^3/uL (0.0-0.7) Basophils # (Auto) 0.1 x10^3/uL (0.0-0.2) Sodium Level 141 mmol/L (136-145) Potassium Level 2.7 mmol/L (3.5-5.1) Chloride Level 102 mmol/L (98-107) Carbon Dioxide Level 28 mmol/L (21-32) Anion Gap 11 (6-14) Blood Urea Nitrogen 8 mg/dL (7-20) Creatinine 0.8 mg/dL (0.6-1.0) Estimated GFR (Cockcroft-Gault) 70.3 Glucose Level 96 mg/dL (70-99) Calcium Level 8.2 mg/dL (8.5-10.1) Phosphorus Level 3.2 mg/dL (2.6-4.7) Magnesium Level 0.8 mg/dL (1.8-2.4) Thyroid Stimulating Hormone (TSH) 3.762 uIU/mL (0.358-3.74) Assessment/Plan Assessment/Plan Hypokalemia Hypomagnesemia Plan Replace her magnesium Replace her potassium Consult Dr. Consult Dr. Bryan Trend labs Home meds DVT prophylaxis Full code Cardiac monitoring Justicifation of Admission Dx: Justifications for Admission: Justification of Admission Dx: N/A Chronic Renal Failure: Electrolyte Abnormality AMELIA TAI III DO Mar 21, 2020 18:53
--- NOTE | 2020-03-21 19:37 | NUR ---
pt states she goes several days without a BM and then several loose, watery BM day for a few days at home. Colonoscopy with Dr. Charles found "lots of polyps." Addendum: 03/21/20 at 1939 by CYNTHIA NUÑEZ RN she states she has had two loose stools since arrival to room today, not witnessed by staff.
[2020-03-21 19:45] VITALS: BP 124/79
[2020-03-21] MEDS: ATORVASTATIN CALCIUM 40 MG TABLET. PO SCH (21:42)
[2020-03-21] MEDS: CYCLOBENZAPRINE 10 MG TABLET. PO SCH (21:43)
[2020-03-21] MEDS: TEMAZEPAM 15 MG CAPSULE PO SCH (21:43)
[2020-03-21] MEDS: FAMOTIDINE 20 MG TABLET. PO SCH (21:43)
[2020-03-21 23:41] VITALS: BP 136/60
[2020-03-22 03:08] VITALS: BP 119/59
[2020-03-22 07:00] VITALS: BP 128/61
[2020-03-22] MEDS ORDERED: PANTOPRAZOLE 40 MG TABLET.DR. PO SCH (07:30)
[2020-03-22] MEDS: ASPIRIN CHEWABLE 81 MG TABLET. PO SCH (07:58)
[2020-03-22] MEDS: valACYclovir 500 MG TABLET. PO SCH (07:58)
[2020-03-22] MEDS: HYDROcodone/APAP 5/325MG 1 TAB TABLET PO PRN (07:58)
[2020-03-22] MEDS: CYCLOBENZAPRINE 10 MG TABLET. PO SCH (07:58)
[2020-03-22] MEDS: OMEGA-3 FATTY ACIDS/FISH OIL 1,000 MG CAPSULE. PO SCH (07:58)
[2020-03-22] MEDS: CYANOCOBALAMIN (VITAMIN B-12) 1,000 MCG TABLET. PO SCH (07:58)
[2020-03-22] MEDS: amLODIPine BESYLATE 5 MG TABLET PO SCH (07:59)
[2020-03-22] MEDS ORDERED: NON FORMULARY ITEM (Biotin 1 TAB) PO SCH (09:00)
[2020-03-22] MEDS ORDERED: UBIDECARENONE 400 MG PO SCH (09:00)
[2020-03-22] MEDS ORDERED: FLAXSEED OIL 1200 MG PO SCH (09:00)
--- NOTE | 2020-03-22 10:12 | PDOC2 ---
GI CONSULT Date of Service: DATE: 03/22/20 TIME: 10:11 Reason For Consult: diarrhea, polyps, electrolyte imbalance HPI: HPI: 74 y/o female advised by cardiology to be evaluated for hypokalemia and hypomagnesemia w/ h/o palpitations/SVT. No GI concerns per nurse. Chronic GI issues include lack of appetite, nausea, LUQ pain, and irregular bowel habits. Reviewed chart and office records. She is very pleasant but not the best historian. Reports chronic nausea improved w/ Zofran. H/o GERD on Nexium BID and recently started Pepcid QHS per PCP. Unaware of h/o gastroparesis. Past used of Reglan, stopped due to concern for adverse effects. Takes domperidone PRN for constipation. Typical bowel pattern is no stools for 5-6 days, then a hard stool followed by several soft and then loose or watery stools. Takes Miralax PRN - last dose reportedly ~3 weeks ago. First says having more watery stools, then says bowel pattern is unchanged. Says she had a watery stool in bed early this morning. Has lost 11.5 pounds in the past couple weeks she thinks. Has LUQ cramping under ribs radiating around to back before stooling - resolved after. Denies dysphagia, vomiting, hematochezia, and melena. Past GI workup: CT A/P 2019: unremarkable. GES 2019: delayed emptying w/ 32% retention at 4 hrs. EGD 2019: gastritis. Colonoscopy 2014: diverticulosis. Colonoscopy 2019: hyperplastic sigmoid polyps, internal hemorrhoids. S/p cholecystectomy. Office notes mention elevated Alk Phos. Denies pancreas and PUD history. Takes ASA. PMH: PMH: HTN, HLD, mild mitral regurg, SVT, cervical cancer, GERD, nausea, gastroparesis, irregular bowel habits, benign colon polyps, diverticulosis, hemorrhoids cholecystectomy, hysterectomy, tonsillectomy, breast surgery FH: Family History: Cancer (breast - sister, colon - sister, stomach - brother and father, NHL - son), CAD, DM, Other (liver disease - mother) Social History: Smoke: Quit ALCOHOL: none Drugs: None ROS: GEN: Denies fevers, chills, sweats HEENT: Denies blurred vision, sore throat CV: +palpitations RESP: Denies shortness of air, cough GI: Per HPI : Denies hematuria, dysuria ENDO: Denies weight changes NEURO: Denies confusion, dizziness MSK: Denies weakness, joint pain/swelling SKIN: Denies jaundice, pruritus Vitals: Vitals: Vital Signs Date Time Temp Pulse Resp B/P (MAP) Pulse Ox O2 Delivery O2 Flow Rate FiO2 03/22/20 08:58 16 Room Air 03/22/20 07:59 90 128/61 03/22/20 07:00 98.2 95 98.2 Labs: Labs: Laboratory Tests Test 03/21/20 11:55 White Blood Count 9.5 x10^3/uL (4.0-11.0) Red Blood Count 3.96 x10^6/uL (3.50-5.40) Hemoglobin 13.1 g/dL (12.0-15.5) Hematocrit 38.9 % (36.0-47.0) Mean Corpuscular Volume 98 fL (79-100) Mean Corpuscular Hemoglobin 33 pg (25-35) Mean Corpuscular Hemoglobin Concent 34 g/dL (31-37) Red Cell Distribution Width 13.8 % (11.5-14.5) Platelet Count 249 x10^3/uL (140-400) Neutrophils (%) (Auto) 78 % (31-73) Lymphocytes (%) (Auto) 13 % (24-48) Monocytes (%) (Auto) 7 % (0-9) Eosinophils (%) (Auto) 2 % (0-3) Basophils (%) (Auto) 1 % (0-3) Neutrophils # (Auto) 7.4 x10^3/uL (1.8-7.7) Lymphocytes # (Auto) 1.2 x10^3/uL (1.0-4.8) Monocytes # (Auto) 0.7 x10^3/uL (0.0-1.1) Eosinophils # (Auto) 0.1 x10^3/uL (0.0-0.7) Basophils # (Auto) 0.1 x10^3/uL (0.0-0.2) Sodium Level 141 mmol/L (136-145) Potassium Level 2.7 mmol/L (3.5-5.1) Chloride Level 102 mmol/L (98-107) Carbon Dioxide Level 28 mmol/L (21-32) Anion Gap 11 (6-14) Blood Urea Nitrogen 8 mg/dL (7-20) Creatinine 0.8 mg/dL (0.6-1.0) Estimated GFR (Cockcroft-Gault) 70.3 Glucose Level 96 mg/dL (70-99) Calcium Level 8.2 mg/dL (8.5-10.1) Phosphorus Level 3.2 mg/dL (2.6-4.7) Magnesium Level 0.8 mg/dL (1.8-2.4) Thyroid Stimulating Hormone (TSH) 3.762 uIU/mL (0.358-3.74) Allergies: Coded Allergies: Penicillins (Verified Allergy, Severe, 02/21/20) Sulfa (Sulfonamide Antibiotics) (Verified Allergy, Intermediate, 02/21/20) clarithromycin (Verified Allergy, Intermediate, 02/21/20) morphine (Verified Allergy, Intermediate, 02/21/20) Medications: Current Medications Medications (Trade) Dose Ordered Sig/Antwan Route PRN Reason Start Time Stop Time Status Last Admin Dose Admin Potassium Chloride/Water 100 ml @ 100 mls/hr Q1H IV 03/21/20 13:00 03/21/20 18:59 DC 03/21/20 19:28 Magnesium Sulfate 50 ml @ 25 mls/hr 1X ONCE IV 03/21/20 12:45 03/21/20 14:44 DC 03/21/20 13:10 Sodium Chloride 1,000 ml @ 100 mls/hr 1X ONCE IV 03/21/20 13:15 03/21/20 23:14 DC 03/21/20 13:12 Magnesium Sulfate 100 ml @ 25 mls/hr 1X ONCE IV 03/21/20 15:30 03/21/20 19:29 DC 03/21/20 15:33 Potassium Chloride (Klor-Con) 40 meq 1X ONCE PO 03/21/20 15:30 03/21/20 15:31 DC 03/21/20 15:57 Amlodipine Besylate (Norvasc) 5 mg DAILY PO 03/22/20 09:00 03/22/20 07:59 Aspirin (Aspirin Chewable) 81 mg DAILY PO 03/22/20 09:00 03/22/20 07:58 Atorvastatin Calcium (Lipitor) 80 mg HS PO 03/21/20 21:00 03/21/20 21:42 Cyclobenzaprine HCl (Flexeril) 10 mg TID PO 03/21/20 21:00 03/22/20 10:02 DC 03/22/20 07:58 Acetaminophen/ Hydrocodone Bitart (Lortab 5/325) 1 tab PRN Q6HRS PRN PO PAIN 03/21/20 17:00 03/22/20 07:58 Temazepam (Restoril) 15 mg QHS PO 03/21/20 21:00 03/21/20 21:43 Famotidine (Pepcid) 40 mg HS PO 03/21/20 21:00 03/21/20 21:43 Cyanocobalamin (Vitamin B-12) 1,000 mcg DAILY PO 03/22/20 09:00 03/22/20 07:58 Fish Oil (Fish Oil) 1,000 mg DAILY PO 03/22/20 09:00 03/22/20 07:58 Pantoprazole Sodium (Protonix) 40 mg DAILYAC PO 03/22/20 07:30 03/22/20 07:58 Valacyclovir HCl (Valtrex) 1,000 mg QD PO 03/22/20 09:00 03/22/20 07:58 Imaging: Imaging: - PE: GEN: NAD - eating toast and eggs HEENT: Atraumatic, PERRL LUNGS: CTAB HEART: RRR ABD: NABS, S/ND/NT EXTREMITY: No edema SKIN: No rashes, no jaundice NEURO/PSYCH: A & O 3 A/P: A/P: Hypokalemia, hypomagnesemia - improved Chronic GI issues including decreased appetite, nausea, alternating bowel habits, and LUQ pain ?weight loss GERD, gastroparesis CRC screen - UTD Diverticulosis, hemorrhoids H/o elevated Alk Phos S/p cholecystectomy -- Unclear if chronic GI symptoms have changed/worsened. Will order stool studies, check x-ray, and monitor. D/w nephrology - wondering about PPI adverse effect of hypomagnesemia - can hold and continue H2 sade. JOSE MATTHEWS Mar 22, 2020 10:12
--- NOTE | 2020-03-22 10:25 | PDOC ---
[employer] PROGRESS NOTE Date of Service DOS: DATE: 03/22/20 TIME: 10:22 Chief Complaint Chief Complaint Hypokalemia Hypomagnesemia Diarrhea Underweight History of Present Illness History of Present Illness Mr Man is a 74-year-old female w/ PMHx hypertension, HLD, GERD, cervical cancer who was directed to come to ED from cardiology due to persistent and severe hypokalemia and hypomagnesemia with palpitations. She has noted chronic diarrhea and GI issues, has had problems with dyskinesia on reglan previously and has been taking domperidone for the past year. Lab testing approximately 1 month ago showed severe hypomagnesemia at 0.7 and hypokalemia at 3.1. She was given outpatient IV magnesium as well as supplemental potassium. In follow-up in the office yesterday the patient was feeling better. We however rechecked her labs which was available early this morning and it again showed severe hypomagnesemia at 0.7 and continued hypokalemia. K improved to 3.5, Mag to 2.3. She is feeling improved today. No SOB, still with some loose stools. Vitals/I&O Vitals/I&O: Vital Signs Date Time Temp Pulse Resp B/P (MAP) Pulse Ox O2 Delivery O2 Flow Rate FiO2 03/22/20 08:58 16 Room Air 03/22/20 07:59 90 128/61 03/22/20 07:00 98.2 95 98.2 I & O 03/21/20 03/21/20 03/22/20 15:00 23:00 07:00 Intake Total 480 ml 0 ml Output Total 550 ml 425 ml Balance -70 ml -425 ml Physical Exam General: Alert, Cooperative, No acute distress Heart: Regular rate, Other (1/6 systolic murmur) Abdomen: Normal bowel sounds Labs Labs: Laboratory Tests Test 03/21/20 11:55 White Blood Count 9.5 x10^3/uL (4.0-11.0) Red Blood Count 3.96 x10^6/uL (3.50-5.40) Hemoglobin 13.1 g/dL (12.0-15.5) Hematocrit 38.9 % (36.0-47.0) Mean Corpuscular Volume 98 fL (79-100) Mean Corpuscular Hemoglobin 33 pg (25-35) Mean Corpuscular Hemoglobin Concent 34 g/dL (31-37) Red Cell Distribution Width 13.8 % (11.5-14.5) Platelet Count 249 x10^3/uL (140-400) Neutrophils (%) (Auto) 78 % (31-73) Lymphocytes (%) (Auto) 13 % (24-48) Monocytes (%) (Auto) 7 % (0-9) Eosinophils (%) (Auto) 2 % (0-3) Basophils (%) (Auto) 1 % (0-3) Neutrophils # (Auto) 7.4 x10^3/uL (1.8-7.7) Lymphocytes # (Auto) 1.2 x10^3/uL (1.0-4.8) Monocytes # (Auto) 0.7 x10^3/uL (0.0-1.1) Eosinophils # (Auto) 0.1 x10^3/uL (0.0-0.7) Basophils # (Auto) 0.1 x10^3/uL (0.0-0.2) Sodium Level 141 mmol/L (136-145) Potassium Level 2.7 mmol/L (3.5-5.1) Chloride Level 102 mmol/L (98-107) Carbon Dioxide Level 28 mmol/L (21-32) Anion Gap 11 (6-14) Blood Urea Nitrogen 8 mg/dL (7-20) Creatinine 0.8 mg/dL (0.6-1.0) Estimated GFR (Cockcroft-Gault) 70.3 Glucose Level 96 mg/dL (70-99) Calcium Level 8.2 mg/dL (8.5-10.1) Phosphorus Level 3.2 mg/dL (2.6-4.7) Magnesium Level 0.8 mg/dL (1.8-2.4) Thyroid Stimulating Hormone (TSH) 3.762 uIU/mL (0.358-3.74) Assessment and Plan Assessmemt and Plan Problems Medical Problems: (1) Hypokalemia Status: Acute (2) Hypomagnesemia Status: Acute Comment Review of Relevant I have reviewed the following items rafy (where applicable) has been applied. Medications: Current Medications Medications (Trade) Dose Ordered Sig/Antwan Route PRN Reason Start Time Stop Time Status Last Admin Dose Admin Potassium Chloride/Water 100 ml @ 100 mls/hr Q1H IV 03/21/20 13:00 03/21/20 18:59 DC 03/21/20 19:28 Magnesium Sulfate 50 ml @ 25 mls/hr 1X ONCE IV 03/21/20 12:45 03/21/20 14:44 DC 03/21/20 13:10 Sodium Chloride 1,000 ml @ 100 mls/hr 1X ONCE IV 03/21/20 13:15 03/21/20 23:14 DC 03/21/20 13:12 Magnesium Sulfate 100 ml @ 25 mls/hr 1X ONCE IV 03/21/20 15:30 03/21/20 19:29 DC 03/21/20 15:33 Potassium Chloride (Klor-Con) 40 meq 1X ONCE PO 03/21/20 15:30 03/21/20 15:31 DC 03/21/20 15:57 Amlodipine Besylate (Norvasc) 5 mg DAILY PO 03/22/20 09:00 03/22/20 07:59 Aspirin (Aspirin Chewable) 81 mg DAILY PO 03/22/20 09:00 03/22/20 07:58 Atorvastatin Calcium (Lipitor) 80 mg HS PO 03/21/20 21:00 03/21/20 21:42 Cyclobenzaprine HCl (Flexeril) 10 mg TID PO 03/21/20 21:00 03/22/20 10:02 DC 03/22/20 07:58 Acetaminophen/ Hydrocodone Bitart (Lortab 5/325) 1 tab PRN Q6HRS PRN PO PAIN 03/21/20 17:00 03/22/20 07:58 Temazepam (Restoril) 15 mg QHS PO 03/21/20 21:00 03/21/20 21:43 Famotidine (Pepcid) 40 mg HS PO 03/21/20 21:00 03/21/20 21:43 Cyanocobalamin (Vitamin B-12) 1,000 mcg DAILY PO 03/22/20 09:00 03/22/20 07:58 Fish Oil (Fish Oil) 1,000 mg DAILY PO 03/22/20 09:00 03/22/20 07:58 Pantoprazole Sodium (Protonix) 40 mg DAILYAC PO 03/22/20 07:30 03/22/20 07:58 Valacyclovir HCl (Valtrex) 1,000 mg QD PO 03/22/20 09:00 03/22/20 07:58 Justicifation of Admission Dx: Justifications for Admission: Justification of Admission Dx: N/A Chronic Renal Failure: Electrolyte Abnormality FRANCES BRISCOE MD Mar 22, 2020 10:25
[2020-03-22 11:00] VITALS: BP 90/48
[2020-03-22 11:00] LABS: CREATININE 0.8 mg/dL (0.6-1.0); GFR 70.3; MAGNESIUM 2.3 mg/dL (1.8-2.4); POTASSIUM 3.5 mmol/L (3.5-5.1)
--- NOTE | 2020-03-22 11:01 | PDOC2 ---
CONSULT Date of Consult Date of Consult DATE: 03/22/20 TIME: 10:39 Reason for Consult Reason for Consult: HypoKalemia, HypoMg Identification/Chief Complaint Chief Complaint Currently No acute complaints Source Source: Chart review, Patient History of Present Illness Reason for Visit: Patient is a 74 old CF with PMH of hypertension and palpitations admitted with lab abnormality. She was instructed to report to the ER by her ctrs Dr. Martin for lab abnormalities. Per Dr. Martin the patient has had intractable hypokalemia and hypomagnesia over the past several weeks. He states they have been trying to manage this outpatient. He states that a recent lab draws showed persistent hypokalemia and hypomagnesia. She is hospitalized for further work-up of her electrolyte abnormalities and management . Pt reports she has been having chronic Nausea for at least past 3 weeks- its pretty bad and she is miserable. Denies any Vomiting . She also reports Diarrhea off and on since Colonoscopy 1 year ago. Denies any new med changes. She thinks she has been taking PPI for many years. She is also on pepcid. She denies any F/chills. No Cough , CP or SOB. Reports Good UOP, No dysuria or hematuria She does report that she has lost 11 lbs in past 3 weeks She states that she has had overall very low oral intake. She denies any syncope. OTC meds include CoQ, Flax seeds, Biotin . She used to take MgO in the past as supplement but stopped sec to diarrhea Past Medical History Cardiovascular: HTN, Hyperlipidemia, Other (Mild mitral regurgitation, brief episodes of supraventricular tachycardia) Heme/Onc: Cancer Past Surgical History Past Surgical History: Cholecystectomy, Other (Breast implants. Procedure for cervical cancer) Family History Family History: Hypertension Social History Quit ALCOHOL: none Current Problem List Problem List Problems Medical Problems: (1) Hypokalemia Status: Acute (2) Hypomagnesemia Status: Acute Current Medications Current Medications Current Medications Potassium Chloride/Water 100 ml @ 100 mls/hr Q1H IV Last administered on 03/21/20at 19:28; Start 03/21/20 at 13:00; Stop 03/21/20 at 18:59; Status DC Magnesium Sulfate 50 ml @ 25 mls/hr 1X ONCE IV Last administered on 03/21/20at 13:10; Start 03/21/20 at 12:45; Stop 03/21/20 at 14:44; Status DC Sodium Chloride 1,000 ml @ 100 mls/hr 1X ONCE IV Last administered on 03/21/20at 13:12; Start 03/21/20 at 13:15; Stop 03/21/20 at 23:14; Status DC Magnesium Sulfate 100 ml @ 25 mls/hr 1X ONCE IV Last administered on 03/21/20at 15:33; Start 03/21/20 at 15:30; Stop 03/21/20 at 19:29; Status DC Potassium Chloride (Klor-Con) 40 meq 1X ONCE PO Last administered on 03/21/20at 15:57; Start 03/21/20 at 15:30; Stop 03/21/20 at 15:31; Status DC Amlodipine Besylate (Norvasc) 5 mg DAILY PO Last administered on 03/22/20at 07:59; Start 03/22/20 at 09:00 Aspirin (Aspirin Chewable) 81 mg DAILY PO Last administered on 03/22/20at 07:58; Start 03/22/20 at 09:00 Atorvastatin Calcium (Lipitor) 80 mg HS PO Last administered on 03/21/20at 21:42; Start 03/21/20 at 21:00 Cyclobenzaprine HCl (Flexeril) 10 mg TID PO Last administered on 03/22/20at 07:58; Start 03/21/20 at 21:00; Stop 03/22/20 at 10:02; Status DC Diphenhydramine HCl (Benadryl) 50 mg PRN TID PRN PO ITCHING; Start 03/21/20 at 17:00 Acetaminophen/ Hydrocodone Bitart (Lortab 5/325) 1 tab PRN Q6HRS PRN PO PAIN Last administered on 03/22/20at 07:58; Start 03/21/20 at 17:00 Temazepam (Restoril) 15 mg QHS PO Last administered on 03/21/20at 21:43; Start 03/21/20 at 21:00 Non-Formulary Medication (Biotin ) 1 tab DAILY PO ; Start 03/22/20 at 09:00; Status UNV Famotidine (Pepcid) 40 mg HS PO Last administered on 03/21/20at 21:43; Start 03/21/20 at 21:00 Non-Formulary Medication (Flaxseed Oil (Flax Oil)) 1,200 mg DAILY PO ; Start 03/22/20 at 09:00; Status UNV Cyanocobalamin (Vitamin B-12) 1,000 mcg DAILY PO Last administered on 03/22/20at 07:58; Start 03/22/20 at 09:00 Fish Oil (Fish Oil) 1,000 mg DAILY PO Last administered on 03/22/20at 07:58; Start 03/22/20 at 09:00 Pantoprazole Sodium (Protonix) 40 mg DAILYAC PO Last administered on 03/22/20at 07:58; Start 03/22/20 at 07:30 Non-Formulary Medication (Ubidecarenone (Coq-10)) 400 mg DAILY PO ; Start 03/22/20 at 09:00; Status UNV Valacyclovir HCl (Valtrex) 1,000 mg QD PO Last administered on 03/22/20at 07:58; Start 03/22/20 at 09:00 Cyclobenzaprine HCl (Flexeril) 5 mg PRN TID PRN PO muscle spasms; Start 03/22/20 at 09:45 Psyllium Hydrophilic Mucilloid (Metamucil Fiber Packet) 1 pkt QPM PO ; Start 03/22/20 at 18:00 Active Scripts Active Reported Valacyclovir (Valacyclovir Hcl) 1,000 Mg Tablet 1,000 Mg PO DAILY Ondansetron Odt (Ondansetron) 4 Mg Tab.rapdis 1 Tab PO PRN Q8HRS PRN Famotidine 40 Mg Tablet 40 Mg PO HS Protonix (Pantoprazole Sodium) 20 Mg Tablet.dr 40 Mg PO DAILY Coq-10 (Ubidecarenone) 100 Mg Capsule 400 Mg PO DAILY B12 Active (Mecobalamin) 1,000 Mcg Tab.chew 1,000 Mcg PO DAILY Benadryl (Diphenhydramine Hcl) 25 Mg Capsule 50 Mg PO TID PRN Aspirin 81 Mg Tab.chew 81 Mg PO DAILY Flax Oil (Flaxseed Oil) 1,000 Mg Capsule 1,200 Mg PO DAILY Pendroy 3 Fish Oil Softgel (Pendroy-3 Fatty Acids/Fish Oil) 1 Each Capsule.dr 1 Each PO DAILY Biotin 5,000 Mcg Tab.rapdis 1 Tab PO DAILY 30 Days Cyclobenzaprine Hcl 10 Mg Tablet 1 Tab PO TID Atorvastatin Calcium 40 Mg Tablet 80 Mg PO HS Amlodipine Besylate 5 Mg Tablet 5 Mg PO DAILY Temazepam 15 Mg Capsule 1 Cap PO QHS Hydrocodone-Apap 5-325 (Hydrocodone Bit/Acetaminophen) 1 Each Tablet 1 Each PO Allergies Allergies: Coded Allergies: Penicillins (Verified Allergy, Severe, 02/21/20) Sulfa (Sulfonamide Antibiotics) (Verified Allergy, Intermediate, 02/21/20) clarithromycin (Verified Allergy, Intermediate, 02/21/20) morphine (Verified Allergy, Intermediate, 02/21/20) ROS Review of System As per HPI , rest of the ROS is negative Physical Exam Physical Exam GEN: NAD HEENT: OM moist , On RA NECK: Supple, no JVD, no thyromegaly was noted LUNGS: Clear to auscultation , Non labored HEART: RRR, S!, S2 present ABDOMEN: Soft, nontender. Positive bowel sounds, no organomegaly, EXTREMITIES: Without clubbing, cyanosis, or edema. NEUROLOGIC: Grossly normal PSYCHIATRIC: Normal affect, normal mood. Stable SKIN: No ulcerations or rashes, good skin turgor, no jaundice No Graham or SP tenderness Vital Signs Vital Signs Date Time Temp Pulse Resp B/P (MAP) Pulse Ox O2 Delivery O2 Flow Rate FiO2 03/22/20 08:58 16 Room Air 03/22/20 07:59 90 128/61 03/22/20 07:00 98.2 95 98.2 Assessment & Plan HypoMagnesemia - PPI's known to deplete Magnesium causing severe deficiency Recommend holding if possible. Defer to GI No Other meds listed in her med list which can cause Renal Mg wasting , Not on diuretics Possible etiologies to be ruled out- Crohn's, Celiac , chronic diarrhea Pt denies ETOH intake Check FeMg - Urine Mg, Cr, K . Replace IV HypoKalemia - as above , both associated . Replace Labs pending this am Persistent nausea /Intermitetnt Diarrhea- Per GI Colonoscopy approx 1 year back Heart Paplptations- following with Dr. Martin Labs Labs Laboratory Tests Test 03/21/20 11:55 White Blood Count 9.5 x10^3/uL (4.0-11.0) Red Blood Count 3.96 x10^6/uL (3.50-5.40) Hemoglobin 13.1 g/dL (12.0-15.5) Hematocrit 38.9 % (36.0-47.0) Mean Corpuscular Volume 98 fL (79-100) Mean Corpuscular Hemoglobin 33 pg (25-35) Mean Corpuscular Hemoglobin Concent 34 g/dL (31-37) Red Cell Distribution Width 13.8 % (11.5-14.5) Platelet Count 249 x10^3/uL (140-400) Neutrophils (%) (Auto) 78 % (31-73) Lymphocytes (%) (Auto) 13 % (24-48) Monocytes (%) (Auto) 7 % (0-9) Eosinophils (%) (Auto) 2 % (0-3) Basophils (%) (Auto) 1 % (0-3) Neutrophils # (Auto) 7.4 x10^3/uL (1.8-7.7) Lymphocytes # (Auto) 1.2 x10^3/uL (1.0-4.8) Monocytes # (Auto) 0.7 x10^3/uL (0.0-1.1) Eosinophils # (Auto) 0.1 x10^3/uL (0.0-0.7) Basophils # (Auto) 0.1 x10^3/uL (0.0-0.2) Sodium Level 141 mmol/L (136-145) Potassium Level 2.7 mmol/L (3.5-5.1) Chloride Level 102 mmol/L (98-107) Carbon Dioxide Level 28 mmol/L (21-32) Anion Gap 11 (6-14) Blood Urea Nitrogen 8 mg/dL (7-20) Creatinine 0.8 mg/dL (0.6-1.0) Estimated GFR (Cockcroft-Gault) 70.3 Glucose Level 96 mg/dL (70-99) Calcium Level 8.2 mg/dL (8.5-10.1) Phosphorus Level 3.2 mg/dL (2.6-4.7) Magnesium Level 0.8 mg/dL (1.8-2.4) Thyroid Stimulating Hormone (TSH) 3.762 uIU/mL (0.358-3.74) Laboratory Tests Test 03/21/20 11:55 White Blood Count 9.5 x10^3/uL (4.0-11.0) Red Blood Count 3.96 x10^6/uL (3.50-5.40) Hemoglobin 13.1 g/dL (12.0-15.5) Hematocrit 38.9 % (36.0-47.0) Mean Corpuscular Volume 98 fL (79-100) Mean Corpuscular Hemoglobin 33 pg (25-35) Mean Corpuscular Hemoglobin Concent 34 g/dL (31-37) Red Cell Distribution Width 13.8 % (11.5-14.5) Platelet Count 249 x10^3/uL (140-400) Neutrophils (%) (Auto) 78 % (31-73) Lymphocytes (%) (Auto) 13 % (24-48) Monocytes (%) (Auto) 7 % (0-9) Eosinophils (%) (Auto) 2 % (0-3) Basophils (%) (Auto) 1 % (0-3) Neutrophils # (Auto) 7.4 x10^3/uL (1.8-7.7) Lymphocytes # (Auto) 1.2 x10^3/uL (1.0-4.8) Monocytes # (Auto) 0.7 x10^3/uL (0.0-1.1) Eosinophils # (Auto) 0.1 x10^3/uL (0.0-0.7) Basophils # (Auto) 0.1 x10^3/uL (0.0-0.2) Sodium Level 141 mmol/L (136-145) Potassium Level 2.7 mmol/L (3.5-5.1) Chloride Level 102 mmol/L (98-107) Carbon Dioxide Level 28 mmol/L (21-32) Anion Gap 11 (6-14) Blood Urea Nitrogen 8 mg/dL (7-20) Creatinine 0.8 mg/dL (0.6-1.0) Estimated GFR (Cockcroft-Gault) 70.3 Glucose Level 96 mg/dL (70-99) Calcium Level 8.2 mg/dL (8.5-10.1) Phosphorus Level 3.2 mg/dL (2.6-4.7) Magnesium Level 0.8 mg/dL (1.8-2.4) Thyroid Stimulating Hormone (TSH) 3.762 uIU/mL (0.358-3.74) Review All relevant outside records, renal labs, imaging studies, telemetry/EKG's were reviewed. TOBI HERNANDEZ MD Mar 22, 2020 11:01
--- NOTE | 2020-03-22 13:10 | NUR ---
SS following for discharge planning. SS reviewed pt chart and discussed with pt RN. Pt is from home and is currently on room air. SS will continue to follow for discharge planning.
--- NOTE | 2020-03-22 14:36 | PDOC ---
CARDIO Progress Notes Date and Time Date of Service 03/22/2020 Time of Evaluation 1140 Subjective Subjective: No Chest Pain, No shortness of breath, No Palpitations Vitals Vitals Vital Signs Date Time Temp Pulse Resp B/P (MAP) Pulse Ox O2 Delivery O2 Flow Rate FiO2 03/22/20 11:00 98.1 98 18 90/48 (62) 92 Room Air 98.1 Weight Weight [ ] Input and Output Intake and Output Intake and Output 03/22/20 07:00 Intake Total 480 ml Output Total 975 ml Balance -495 ml Intake Oral 480 ml Output Urine Total 975 ml # Bowel Movements 1 Laboratory Labs Laboratory Tests Test 03/22/20 10:15 Sodium Level 138 mmol/L (136-145) Potassium Level 3.5 mmol/L (3.5-5.1) Chloride Level 104 mmol/L (98-107) Carbon Dioxide Level 24 mmol/L (21-32) Anion Gap 10 (6-14) Blood Urea Nitrogen 7 mg/dL (7-20) Creatinine 0.8 mg/dL (0.6-1.0) Estimated GFR (Cockcroft-Gault) 70.3 Glucose Level 118 mg/dL (70-99) Calcium Level 8.0 mg/dL (8.5-10.1) Magnesium Level 2.3 mg/dL (1.8-2.4) Physical Exam HEENT: Neck Supple W Full Motion Chest: Symmetric LUNGS: Clear to Auscultation Heart: S1S2, RRR (SR), murmurs (2/6 systolic murmur to LLS border) Abdomen: Soft N/T Extremities: No Calf Tenderness Neurology: alert, oriented, follow commands Assessment Assessment 1. Dizziness: possibly from fluid loss, no arrhythmias 2. Severe Hypokalemia/hypomagnesemia: Nephrology consulted 3. Anorexia with possible Chronic diarrhea with abdominal pain: GI consulted 4. HTN :controlled 5. HLP Recommendations 1. Hold home HCTZ. May restart home norvasc pe BP trend and statin 2. Await GI and nephrology input 3. Supportive care Justicifation of Admission Dx: Justifications for Admission: Justification of Admission Dx: N/A Chronic Renal Failure: Electrolyte Abnormality MIREYA SCHWARTZ APRN Mar 22, 2020 14:36
[2020-03-22 15:00] VITALS: BP 142/89
--- NOTE | 2020-03-22 16:07 | RAD ---
KUB History: Reason: LUQ/left flank pain, diarrhea, / Spl. Instructions: / History: Technique: Supine view the abdomen. Comparison: None. Findings: Mild small bowel gas. Air and stool scattered throughout the imaged colon. Multilevel lumbar spondylosis. Calcified breast implants. Phleboliths projecting over the pelvis. Impression: 1. Nonobstructed bowel gas pattern. Electronically signed by: Odin Muniz DO (03/22/2020 4:03 PM) [id number]
[2020-03-22] MEDS: PSYLLIUM HUSK (SUGAR FREE) 1 PKT PACKET PO SCH (17:29)
[2020-03-22 19:00] VITALS: BP 126/59
[2020-03-22] MEDS: FAMOTIDINE 20 MG TABLET. PO SCH (22:17)
[2020-03-22] MEDS: CYCLOBENZAPRINE 10 MG TABLET. PO PRN (22:18)
[2020-03-22] MEDS: ATORVASTATIN CALCIUM 40 MG TABLET. PO SCH (22:18)
[2020-03-22] MEDS: TEMAZEPAM 15 MG CAPSULE PO SCH (22:21)
[2020-03-22 23:00] VITALS: BP 125/78
[2020-03-23] MEDS: HYDROcodone/APAP 5/325MG 1 TAB TABLET PO PRN ×2 (01:11→23:03)
[2020-03-23 03:03] VITALS: BP 114/62
[2020-03-23 05:51] LABS: ALBUMIN 2.7 g/dL (3.4-5.0); ALBUMIN/GLOBULIN RATIO 0.8 (1.0-1.7); CALCIUM 8.5 mg/dL (8.5-10.1); CREATININE 0.7 mg/dL (0.6-1.0); MAGNESIUM 2.1 mg/dL (1.8-2.4); POTASSIUM 3.1 mmol/L (3.5-5.1); TOTAL BILIRUBIN 0.8 mg/dL (0.2-1.0); TOTAL PROTEIN 6.1 g/dL (6.4-8.2)
[2020-03-23 07:00] VITALS: BP 114/55
[2020-03-23] MEDS: ASPIRIN CHEWABLE 81 MG TABLET. PO SCH (08:38)
[2020-03-23] MEDS: OMEGA-3 FATTY ACIDS/FISH OIL 1,000 MG CAPSULE. PO SCH (08:38)
[2020-03-23] MEDS: amLODIPine BESYLATE 5 MG TABLET PO SCH (08:38)
[2020-03-23] MEDS: valACYclovir 500 MG TABLET. PO SCH (08:38)
[2020-03-23] MEDS: CYANOCOBALAMIN (VITAMIN B-12) 1,000 MCG TABLET. PO SCH (08:39)
--- NOTE | 2020-03-23 10:29 | PDOC ---
Date of Service: DATE: 03/23/20 TIME: 10:24 Subjective: Subjective: Details same chronic GI issues we discussed extensively yesterday. Doing okay overall. Objective: Objective: D/w nurse - did have watery stool, asking to go home. Vital Signs: Vital Signs Date Time Temp Pulse Resp B/P (MAP) Pulse Ox O2 Delivery O2 Flow Rate FiO2 03/23/20 08:38 75 114/55 03/23/20 08:00 Room Air 03/23/20 07:00 96.8 20 91 96.8 Labs: Laboratory Tests Test 03/23/20 01:00 03/23/20 04:30 Urine Random Creatinine 62.6 mg/dL Sodium Level 137 mmol/L Potassium Level 3.1 mmol/L Chloride Level 104 mmol/L Carbon Dioxide Level 25 mmol/L Anion Gap 8 Blood Urea Nitrogen 8 mg/dL Creatinine 0.7 mg/dL Estimated GFR (Cockcroft-Gault) 82.0 BUN/Creatinine Ratio 11 Glucose Level 103 mg/dL Calcium Level 8.5 mg/dL Magnesium Level 2.1 mg/dL Total Bilirubin 0.8 mg/dL Aspartate Amino Transf (AST/SGOT) 16 U/L Alanine Aminotransferase (ALT/SGPT) 12 U/L Alkaline Phosphatase 105 U/L Total Protein 6.1 g/dL Albumin 2.7 g/dL Albumin/Globulin Ratio 0.8 PE: GEN: NAD LUNGS: CTAB HEART: RRR ABD: S/ND/NT NEURO/PSYCH: A & O 3 A/P: H/o hypokalemia and hypomagnesemia H/o GERD, gastroparesis, IBS/alternating bowel pattern H/o elevated Alk Phos - normal here -- PPI stopped yesterday - on H2 sade. Stool studies pending. Justicifation of Admission Dx: Justifications for Admission: Justification of Admission Dx: N/A Chronic Renal Failure: Electrolyte Abnormality JOSE MATTHEWS Mar 23, 2020 10:29
[2020-03-23 11:00] VITALS: BP 102/52
[2020-03-23] MEDS ORDERED: POTASSIUM CHLORIDE 20 MEQ TABLET.ER. PO ONE ×2 (12:28→13:00)
--- NOTE | 2020-03-23 12:31 | NUR ---
SS following up with discharge planning. SS reviewed pt chart and discussed with pt RN. Pt is currently on room air. Potassium being replaced today. SS will continue to follow for discharge planning.
--- NOTE | 2020-03-23 12:46 | PDOC ---
[employer] PROGRESS NOTE Date of Service DOS: DATE: 03/23/20 TIME: 12:31 Chief Complaint Chief Complaint Hypokalemia Hypomagnesemia Diarrhea Underweight Dizziness Anorexia Abdominal pain: GI consulted HTN :controlled HLP Severe protein calorie malnutrition History of Present Illness History of Present Illness Mr Man is a 74-year-old female w/ PMHx hypertension, HLD, GERD, cervical cancer who was directed to come to ED from cardiology due to persistent and severe hypokalemia and hypomagnesemia with palpitations. She has noted chronic diarrhea and GI issues, has had problems with dyskinesia on reglan previously and has been taking domperidone for the past year. Lab testing approximately 1 month ago showed severe hypomagnesemia at 0.7 and hypokalemia at 3.1. She was given outpatient IV magnesium as well as supplemental potassium. In follow-up in the office yesterday the patient was feeling better. We however rechecked her labs which was available early this morning and it again showed severe hypomagnesemia at 0.7 and continued hypokalemia. 03/22: K improved to 3.5, Mag to 2.3. She is feeling improved today. No SOB, still with some loose stools. Mag normalized. K3.1. Feeling improved, no shortness of breath. Still having loose bowels. She feels overall improved, but weak. Vitals/I&O Vitals/I&O: Vital Signs Date Time Temp Pulse Resp B/P (MAP) Pulse Ox O2 Delivery O2 Flow Rate FiO2 03/23/20 11:00 98.3 103 20 102/52 (69) 94 Room Air 98.3 I & O 03/22/20 03/22/20 03/23/20 15:00 23:00 07:00 Intake Total 200 ml 200 ml Output Total 800 ml 250 ml Balance 200 ml -800 ml -50 ml Physical Exam General: Alert, Cooperative, No acute distress Heart: Regular rate, Other (1/6 systolic murmur) Abdomen: Normal bowel sounds Labs Labs: Laboratory Tests Test 03/23/20 01:00 03/23/20 04:30 Urine Random Creatinine 62.6 mg/dL (Not Establ.) Sodium Level 137 mmol/L (136-145) Potassium Level 3.1 mmol/L (3.5-5.1) Chloride Level 104 mmol/L (98-107) Carbon Dioxide Level 25 mmol/L (21-32) Anion Gap 8 (6-14) Blood Urea Nitrogen 8 mg/dL (7-20) Creatinine 0.7 mg/dL (0.6-1.0) Estimated GFR (Cockcroft-Gault) 82.0 BUN/Creatinine Ratio 11 (6-20) Glucose Level 103 mg/dL (70-99) Calcium Level 8.5 mg/dL (8.5-10.1) Magnesium Level 2.1 mg/dL (1.8-2.4) Total Bilirubin 0.8 mg/dL (0.2-1.0) Aspartate Amino Transf (AST/SGOT) 16 U/L (15-37) Alanine Aminotransferase (ALT/SGPT) 12 U/L (14-59) Alkaline Phosphatase 105 U/L (46-116) Total Protein 6.1 g/dL (6.4-8.2) Albumin 2.7 g/dL (3.4-5.0) Albumin/Globulin Ratio 0.8 (1.0-1.7) Assessment and Plan Assessmemt and Plan Problems Medical Problems: (1) Hypokalemia Status: Acute (2) Hypomagnesemia Status: Acute Comment Review of Relevant I have reviewed the following items rafy (where applicable) has been applied. Medications: Current Medications Medications (Trade) Dose Ordered Sig/Antwan Route PRN Reason Start Time Stop Time Status Last Admin Dose Admin Psyllium Hydrophilic Mucilloid (Metamucil Fiber Packet) 1 pkt QPM PO 03/22/20 18:00 03/22/20 17:29 Justicifation of Admission Dx: Justifications for Admission: Justification of Admission Dx: N/A Chronic Renal Failure: Electrolyte Abnormality FRANCES BRISCOE MD Mar 23, 2020 12:46
--- NOTE | 2020-03-23 13:52 | PDOC ---
DATE OF SERVICE DATE: 03/23/20 TIME: 13:50 SUBJECTIVE ROS Feeling better , but still feeling weak OBJECTIVE Vital Signs Vital Signs Date Time Temp Pulse Resp B/P (MAP) Pulse Ox O2 Delivery O2 Flow Rate FiO2 03/23/20 11:00 98.3 103 20 102/52 (69) 94 Room Air 98.3 I & 0 Intake and Output 03/23/20 07:00 Intake Total 400 ml Output Total 1050 ml Balance -650 ml Intake Oral 400 ml Output Urine Total 1050 ml # Bowel Movements 2 PHYSICAL EXAM Physical Exam GEN: NAD HEENT: OM moist , On RA NECK: Supple, no JVD, no thyromegaly was noted LUNGS: Clear to auscultation , Non labored HEART: RRR, S!, S2 present ABDOMEN: Soft, nontender. Positive bowel sounds, no organomegaly, EXTREMITIES: Without clubbing, cyanosis, or edema. NEUROLOGIC: Grossly normal PSYCHIATRIC: Normal affect, normal mood. Stable SKIN: No ulcerations or rashes, good skin turgor, no jaundice No Graham or SP tenderness DIAGNOSIS/ASSESSMENT Assessment & Plan HypoMagnesemia - Normal today, PPI held Replaced IV at presentation HypoKalemia -Mildly low , Replace Persistent nausea /Intermitetnt Diarrhea- Per GI Colonoscopy approx 1 year back Heart Paplptations- following with Dr. Martin COMMENT/RELEVANT DATA Meds Current Medications Medications (Trade) Dose Ordered Sig/Antwan Start Time Stop Time Status Last Admin Dose Admin Acetaminophen/ Hydrocodone Bitart (Lortab 5/325) 1 tab PRN Q6HRS PRN 03/21/20 17:00 03/23/20 01:11 1 TAB Amlodipine Besylate (Norvasc) 5 mg DAILY 03/22/20 09:00 03/23/20 08:38 5 MG Aspirin (Aspirin Chewable) 81 mg DAILY 03/22/20 09:00 03/23/20 08:38 81 MG Atorvastatin Calcium (Lipitor) 80 mg HS 03/21/20 21:00 03/22/20 22:18 80 MG Cyanocobalamin (Vitamin B-12) 1,000 mcg DAILY 03/22/20 09:00 03/23/20 08:39 1,000 MCG Cyclobenzaprine HCl (Flexeril) 5 mg PRN TID PRN 03/22/20 09:45 03/22/20 22:18 5 MG Diphenhydramine HCl (Benadryl) 50 mg PRN TID PRN 03/21/20 17:00 Famotidine (Pepcid) 40 mg HS 03/21/20 21:00 03/22/20 22:17 40 MG Fish Oil (Fish Oil) 1,000 mg DAILY 03/22/20 09:00 03/23/20 08:38 1,000 MG Magnesium Sulfate 100 ml @ 25 mls/hr 1X ONCE 03/21/20 15:30 03/21/20 19:29 DC 03/21/20 15:33 25 MLS/HR Non-Formulary Medication (Biotin ) 1 tab DAILY 03/22/20 09:00 UNV Non-Formulary Medication (Flaxseed Oil (Flax Oil)) 1,200 mg DAILY 03/22/20 09:00 UNV Non-Formulary Medication (Ubidecarenone (Coq-10)) 400 mg DAILY 03/22/20 09:00 UNV Pantoprazole Sodium (Protonix) 40 mg DAILYAC 03/22/20 07:30 03/22/20 12:12 DC 03/22/20 07:58 40 MG Potassium Chloride/Water 100 ml @ 100 mls/hr Q1H 03/21/20 13:00 03/21/20 18:59 DC 03/21/20 19:28 100 MLS/HR Potassium Chloride (Klor-Con) 40 meq 1228 ONCE 03/23/20 12:28 03/23/20 12:29 UNV Psyllium Hydrophilic Mucilloid (Metamucil Fiber Packet) 1 pkt QPM 03/22/20 18:00 03/22/20 17:29 1 PKT Sodium Chloride 1,000 ml @ 100 mls/hr 1X ONCE 03/21/20 13:15 03/21/20 23:14 DC 03/21/20 13:12 100 MLS/HR Temazepam (Restoril) 15 mg QHS 03/21/20 21:00 03/22/20 22:21 15 MG Valacyclovir HCl (Valtrex) 1,000 mg QD 03/22/20 09:00 03/23/20 08:38 1,000 MG Lab Laboratory Tests Test 03/23/20 01:00 03/23/20 04:30 Urine Random Creatinine 62.6 mg/dL (Not Establ.) Sodium Level 137 mmol/L (136-145) Potassium Level 3.1 mmol/L (3.5-5.1) Chloride Level 104 mmol/L (98-107) Carbon Dioxide Level 25 mmol/L (21-32) Anion Gap 8 (6-14) Blood Urea Nitrogen 8 mg/dL (7-20) Creatinine 0.7 mg/dL (0.6-1.0) Estimated GFR (Cockcroft-Gault) 82.0 BUN/Creatinine Ratio 11 (6-20) Glucose Level 103 mg/dL (70-99) Calcium Level 8.5 mg/dL (8.5-10.1) Magnesium Level 2.1 mg/dL (1.8-2.4) Total Bilirubin 0.8 mg/dL (0.2-1.0) Aspartate Amino Transf (AST/SGOT) 16 U/L (15-37) Alanine Aminotransferase (ALT/SGPT) 12 U/L (14-59) Alkaline Phosphatase 105 U/L (46-116) Total Protein 6.1 g/dL (6.4-8.2) Albumin 2.7 g/dL (3.4-5.0) Albumin/Globulin Ratio 0.8 (1.0-1.7) Results All relevant outside records, renal labs, imaging studies, telemetry/EKG's were reviewed. Justicifation of Admission Dx: Justifications for Admission: Justification of Admission Dx: N/A Chronic Renal Failure: Electrolyte Abnormality TOBI HERNANDEZ MD Mar 23, 2020 13:52
[2020-03-23 15:00] VITALS: BP 97/40
[2020-03-23] MEDS: PSYLLIUM HUSK (SUGAR FREE) 1 PKT PACKET PO SCH (18:00)
[2020-03-23 19:20] VITALS: BP 126/63
[2020-03-23 20:09] LABS: UR POTASSIUM 39.4 mmol/L (Not Estab.)
[2020-03-23] MEDS: TEMAZEPAM 15 MG CAPSULE PO SCH (20:22)
[2020-03-23] MEDS: FAMOTIDINE 20 MG TABLET. PO SCH (20:23)
[2020-03-23] MEDS: ATORVASTATIN CALCIUM 40 MG TABLET. PO SCH (20:23)
[2020-03-23 23:00] VITALS: BP 124/61
[2020-03-23] MEDS: CYCLOBENZAPRINE 10 MG TABLET. PO PRN (23:01)
[2020-03-24 03:00] VITALS: BP_SYST 117; BP_SYST 131; BP_DIAS 55; BP_DIAS 73
[2020-03-24 05:07] LABS: CALCIUM 8.9 mg/dL (8.5-10.1); CREATININE 0.7 mg/dL (0.6-1.0); PHOSPHORUS 3.3 mg/dL (2.6-4.7); POTASSIUM 3.6 mmol/L (3.5-5.1)
[2020-03-24 07:00] VITALS: BP 103/45
[2020-03-24] MEDS: valACYclovir 500 MG TABLET. PO SCH (08:24)
[2020-03-24] MEDS: CYANOCOBALAMIN (VITAMIN B-12) 1,000 MCG TABLET. PO SCH (08:25)
[2020-03-24] MEDS: OMEGA-3 FATTY ACIDS/FISH OIL 1,000 MG CAPSULE. PO SCH (08:25)
[2020-03-24] MEDS: ASPIRIN CHEWABLE 81 MG TABLET. PO SCH (08:25)
[2020-03-24] MEDS: amLODIPine BESYLATE 5 MG TABLET PO SCH (09:00)
[2020-03-24 10:48] VITALS: BP 99/49
--- NOTE | 2020-03-24 11:45 | PDOC ---
DATE OF SERVICE: DOS: DATE: 03/24/20 TIME: 11:44 SUBJECTIVE ROS Follow-up for hypokalemia, hypomagnesemia: Patient denies any new complaints currently no diarrhea nausea vomiting. OBJECTIVE Vital Signs Vital Signs Date Time Temp Pulse Resp B/P (MAP) Pulse Ox O2 Delivery O2 Flow Rate FiO2 03/24/20 10:48 97.8 77 16 99/49 (66) 94 Room Air 97.8 03/24/20 03:00 I & 0 Intake and Output 03/24/20 07:00 Intake Total 1550 ml Output Total 600 ml Balance 950 ml Intake Oral 1550 ml Output Urine Total 600 ml # Voids 2 # Bowel Movements 1 PHYSICAL EXAM Physical Exam General Appearance: Awake: Alert Oriented x 1-2 Neck: No JVD or JVP Chest: CTA Jhonny Heart: S1 S2 Abdomen - Soft NTND Extremities - No Edema DIAGNOSIS/ASSESSMENT Assessment & Plan Hypomagnesemia, hypokalemia: Now corrected with supplementation. If this recurs please feel free to call us for further work-up and recommendations. We will be available if needed. COMMENT/RELEVANT DATA Meds Current Medications Medications (Trade) Dose Ordered Sig/Antwan Start Time Stop Time Status Last Admin Dose Admin Acetaminophen/ Hydrocodone Bitart (Lortab 5/325) 1 tab PRN Q6HRS PRN 03/21/20 17:00 03/23/20 23:03 1 TAB Amlodipine Besylate (Norvasc) 5 mg DAILY 03/22/20 09:00 03/23/20 08:38 5 MG Aspirin (Aspirin Chewable) 81 mg DAILY 03/22/20 09:00 03/24/20 08:25 81 MG Atorvastatin Calcium (Lipitor) 80 mg HS 03/21/20 21:00 03/23/20 20:23 80 MG Cyanocobalamin (Vitamin B-12) 1,000 mcg DAILY 03/22/20 09:00 03/24/20 08:25 1,000 MCG Cyclobenzaprine HCl (Flexeril) 5 mg PRN TID PRN 03/22/20 09:45 03/23/20 23:01 5 MG Diphenhydramine HCl (Benadryl) 50 mg PRN TID PRN 03/21/20 17:00 Famotidine (Pepcid) 40 mg HS 03/21/20 21:00 03/23/20 20:23 40 MG Fish Oil (Fish Oil) 1,000 mg DAILY 03/22/20 09:00 03/24/20 08:25 1,000 MG Magnesium Sulfate 100 ml @ 25 mls/hr 1X ONCE 03/21/20 15:30 03/21/20 19:29 DC 03/21/20 15:33 25 MLS/HR Non-Formulary Medication (Biotin ) 1 tab DAILY 03/22/20 09:00 UNV Non-Formulary Medication (Flaxseed Oil (Flax Oil)) 1,200 mg DAILY 03/22/20 09:00 UNV Non-Formulary Medication (Ubidecarenone (Coq-10)) 400 mg DAILY 03/22/20 09:00 UNV Pantoprazole Sodium (Protonix) 40 mg DAILYAC 03/22/20 07:30 03/22/20 12:12 DC 03/22/20 07:58 40 MG Potassium Chloride/Water 100 ml @ 100 mls/hr Q1H 03/21/20 13:00 03/21/20 18:59 DC 03/21/20 19:28 100 MLS/HR Potassium Chloride (Klor-Con) 40 meq 1228 ONCE 03/23/20 12:28 03/23/20 12:29 UNV Psyllium Hydrophilic Mucilloid (Metamucil Fiber Packet) 1 pkt QPM 03/22/20 18:00 03/22/20 17:29 1 PKT Sodium Chloride 1,000 ml @ 100 mls/hr 1X ONCE 03/21/20 13:15 03/21/20 23:14 DC 03/21/20 13:12 100 MLS/HR Temazepam (Restoril) 15 mg QHS 03/21/20 21:00 03/23/20 20:22 15 MG Valacyclovir HCl (Valtrex) 1,000 mg QD 03/22/20 09:00 03/24/20 08:24 1,000 MG Lab Laboratory Tests Test 03/24/20 04:00 Sodium Level 140 mmol/L (136-145) Potassium Level 3.6 mmol/L (3.5-5.1) Chloride Level 105 mmol/L (98-107) Carbon Dioxide Level 27 mmol/L (21-32) Anion Gap 8 (6-14) Blood Urea Nitrogen 8 mg/dL (7-20) Creatinine 0.7 mg/dL (0.6-1.0) Estimated GFR (Cockcroft-Gault) 82.0 Glucose Level 118 mg/dL (70-99) Calcium Level 8.9 mg/dL (8.5-10.1) Phosphorus Level 3.3 mg/dL (2.6-4.7) Magnesium Level 2.0 mg/dL (1.8-2.4) Results All relevant outside records, renal labs, imaging studies, telemetry/EKG's were reviewed. Justicifation of Admission Dx: Justifications for Admission: Justification of Admission Dx: N/A Chronic Renal Failure: Electrolyte Abnormality RUBY KELLY MD Mar 24, 2020 11:45
[2020-03-24] MEDS ORDERED: POTASSIUM CHLORIDE 20 MEQ TABLET.ER. PO ONE (12:00)
[2020-03-24] MEDS ORDERED: POTA20TA4 PO (12:52)
--- NOTE | 2020-03-24 12:54 | SNU/HH DC ---
DISCHARGE WITH HOME HEALTH DISCHARGE INFORMATION: Discharge Date: Mar 24, 2020 Final Diagnosis: Problems Medical Problems: (1) Hypokalemia Status: Acute (2) Hypomagnesemia Status: Acute Condition on Discharge: Stable CODE STATUS: Code Status: Full HOME HEALTH: Face to Face: I certify this patient is under my care and that I, or a nurse practitioner or physician's miner assistant working with me, had a face to face encounter that meets the physician face to face encounter requirements with this patient on 03/24/2020. Medical Complications: HTN Senior Living For: Assess/Skilled Observatio, Medication Management RN For Eval/Treatment: Yes Physical Therapy For: Evalulation/Treatment Occupational Therapy For: Evaluation/Treatment Pt Meets Homebound Status: Limited distance walking POST DISCHARGE ORDERS: Activity Instructions for Disc: No restrictions Weight Bearing Status after Di: No restrictions DIET AFTER DISCHARGE: Regular CHECKS AFTER DISCHARGE: Checks after discharge: Check blood press - daily FOLLOW-UP: Additional Instructions: Labs: BMP, Magnesium level WEEKLY. First draw 03/26/[address] Donny Martin CERTIFICATION STATEMENT: Certification Statement: Certification Statement: Based on the above finding, I certify that this patient is confined to the home and needs intermittent half-way care, physical therapy and/or speech therapy, or continues to need occupational therapy.~ This patient is under my care, and I have initiated the establishment of the plan of care.~ This patient will be followed by myself or a community physician who will periodically review the plan of care. Home Meds Active Scripts Potassium Chloride (KLOR-CON M20) 20 Meq Tab.er.prt, 40 MEQ PO DAILYWBKFT for Hypokalemia for 30 Days, #60 TAB.SR Prov:FRANCES BRISCOE MD 03/24/20 Reported Medications Valacyclovir Hcl (VALACYCLOVIR) 1,000 Mg Tablet, 1000 MG PO DAILY for Shingles, TAB 03/21/20 Ondansetron (ONDANSETRON ODT) 4 Mg Tab.rapdis, 1 TAB PO PRN Q8HRS PRN for NAUSEA/VOMITING, #16 TAB 03/21/20 Famotidine (FAMOTIDINE) 40 Mg Tablet, 40 MG PO HS for GERD, TAB 8/5/20 Ubidecarenone (COQ-10) 100 Mg Capsule, 400 MG PO DAILY for antioxidant, CAP 03/21/20 Mecobalamin (B12 Active) 1,000 Mcg Tab.chew, 1000 MCG PO DAILY for vit, TAB.CHEW 03/21/20 Diphenhydramine Hcl (BENADRYL) 25 Mg Capsule, 50 MG PO TID PRN for allergies, CAP 03/21/20 Aspirin (ASPIRIN) 81 Mg Tab.chew, 81 MG PO DAILY for heart health, TAB.CHEW 03/21/20 Flaxseed Oil (FLAX OIL) 1,000 Mg Capsule, 1200 MG PO DAILY for vit, CAP 03/21/20 [place]-3 Fatty Acids/Fish Oil ([place] 3 FISH OIL SOFTGEL) 1 Each Capsule.dr, 1 EACH PO DAILY for vit, CAP 03/21/20 Biotin (Biotin) 5,000 Mcg Tab.rapdis, 1 TAB PO DAILY for vitamin for 30 Days, #30 TAB 0 Refills 03/21/20 Cyclobenzaprine Hcl (CYCLOBENZAPRINE HCL) 10 Mg Tablet, 1 TAB PO TID for muscle spasms, #90 TAB 03/21/20 Atorvastatin Calcium (ATORVASTATIN CALCIUM) 40 Mg Tablet, 80 MG PO HS for FOR CHOLESTEROL, #30 TAB 0 Refills 03/21/20 Amlodipine Besylate (AMLODIPINE BESYLATE) 5 Mg Tablet, 5 MG PO DAILY for HTN, TAB 03/21/20 Temazepam (TEMAZEPAM) 15 Mg Capsule, 1 CAP PO QHS for insomnia, #30 CAP 1 Refill 03/21/20 Hydrocodone Bit/Acetaminophen (HYDROCODONE-APAP 5-325 ) 1 Each Tablet, 1 EACH PO 08/23/13 Discontinued Reported Medications Pantoprazole Sodium (PROTONIX) 20 Mg Tablet., 40 MG PO DAILY for GERD, TAB 03/21/20 Valacyclovir Hcl (VALACYCLOVIR) 1,000 Mg Tablet, 1 TAB PO DAILY for ART, #30 TAB 3 Refills 03/21/20 FRANCES BRISCOE MD Mar 24, 2020 12:54
--- NOTE | 2020-03-24 13:00 | PDOC3 ---
Discharge Summary Visit Information Date of Admission: Mar 21, 2020 Date of Discharge: Mar 24, 2020 Admitting Diagnosis: Hypomagnesemia Final Diagnosis Problems Medical Problems: (1) Hypokalemia Status: Acute (2) Hypomagnesemia Status: Acute Brief Hospital Course Allergies Allergies Coded Allergies Type Severity Reaction Last Updated Verified Penicillins Allergy Severe 02/21/20 Yes Sulfa (Sulfonamide Antibiotics) Allergy Intermediate 02/21/20 Yes clarithromycin Allergy Intermediate 02/21/20 Yes morphine Allergy Intermediate 02/21/20 Yes Vital Signs Vital Signs Date Time Temp Pulse Resp B/P (MAP) Pulse Ox O2 Delivery O2 Flow Rate FiO2 03/24/20 10:48 97.8 77 16 99/49 (66) 94 Room Air 97.8 03/24/20 03:00 Lab Results Laboratory Tests Test 03/23/20 01:00 03/23/20 04:30 03/24/20 04:00 Urine Random Creatinine 62.6 mg/dL (Not Establ.) Urine Sodium 143 mmol/L (Not Estab.) Urine Potassium 39.4 mmol/L (Not Estab.) Urine Chloride 146 mmol/L (Not Estab.) Stool Campylobacter PCR Positive (NEGATIVE) Stool E. coli Shiga Toxins (PCR) Negative (NEGATIVE) Stool Salmonella PCR Negative (NEGATIVE) Stool Shigella PCR Negative (NEGATIVE) Clostridium difficile Toxin (PCR) Negative (NEGATIVE) Sodium Level 137 mmol/L (136-145) 140 mmol/L (136-145) Potassium Level 3.1 mmol/L (3.5-5.1) 3.6 mmol/L (3.5-5.1) Chloride Level 104 mmol/L (98-107) 105 mmol/L (98-107) Carbon Dioxide Level 25 mmol/L (21-32) 27 mmol/L (21-32) Anion Gap 8 (6-14) 8 (6-14) Blood Urea Nitrogen 8 mg/dL (7-20) 8 mg/dL (7-20) Creatinine 0.7 mg/dL (0.6-1.0) 0.7 mg/dL (0.6-1.0) Estimated GFR (Cockcroft-Gault) 82.0 82.0 BUN/Creatinine Ratio 11 (6-20) Glucose Level 103 mg/dL (70-99) 118 mg/dL (70-99) Calcium Level 8.5 mg/dL (8.5-10.1) 8.9 mg/dL (8.5-10.1) Magnesium Level 2.1 mg/dL (1.8-2.4) 2.0 mg/dL (1.8-2.4) Total Bilirubin 0.8 mg/dL (0.2-1.0) Aspartate Amino Transf (AST/SGOT) 16 U/L (15-37) Alanine Aminotransferase (ALT/SGPT) 12 U/L (14-59) Alkaline Phosphatase 105 U/L (46-116) Total Protein 6.1 g/dL (6.4-8.2) Albumin 2.7 g/dL (3.4-5.0) Albumin/Globulin Ratio 0.8 (1.0-1.7) Phosphorus Level 3.3 mg/dL (2.6-4.7) Laboratory Tests Test 03/24/20 04:00 Sodium Level 140 mmol/L (136-145) Potassium Level 3.6 mmol/L (3.5-5.1) Chloride Level 105 mmol/L (98-107) Carbon Dioxide Level 27 mmol/L (21-32) Anion Gap 8 (6-14) Blood Urea Nitrogen 8 mg/dL (7-20) Creatinine 0.7 mg/dL (0.6-1.0) Estimated GFR (Cockcroft-Gault) 82.0 Glucose Level 118 mg/dL (70-99) Calcium Level 8.9 mg/dL (8.5-10.1) Phosphorus Level 3.3 mg/dL (2.6-4.7) Magnesium Level 2.0 mg/dL (1.8-2.4) Brief Hospital Course Mr Man is a 74-year-old female w/ PMHx hypertension, HLD, GERD, cervical cancer who was directed to come to ED from cardiology due to persistent and severe hypokalemia and hypomagnesemia with palpitations. She has noted chronic diarrhea and GI issues, has had problems with dyskinesia on reglan previously and has been taking domperidone for the past year. Lab testing approximately 1 month ago showed severe hypomagnesemia at 0.7 and hypokalemia at 3.1. She was given outpatient IV magnesium as well as supplemental potassium. In follow-up in the office yesterday the patient was feeling better. We however rechecked her labs which was available early this morning and it again showed severe hypomagnesemia at 0.7 and continued hypokalemia. 03/22: K improved to 3.5, Mag to 2.3. She is feeling improved today. No SOB, still with some loose stools. 03/23: Mag normalized. K3.1. Feeling improved, no shortness of breath. Still having loose bowels. She feels overall improved, but weak. Feeling improved no shortness of breath 1 bowel movement a little loose. She is feeling stronger today. K3.6, mag 2. She is anxious to go home and will go home with home health for weekly blood draws for BMP and magnesium intake 40 mEq of potassium daily until further notice as well as 400 mg of magnesium. She is already transitioned off of proton pump inhibitor to an H2 sade with good effect. Consults: Nephrology, gastroenterology Vitals/I&O: Vital Signs Date Time Temp Pulse Resp B/P (MAP) Pulse Ox O2 Delivery O2 Flow Rate FiO2 03/23/20 11:00 98.3 103 20 102/52 (69) 94 Room Air 98.3 I & O 03/22/20 03/22/20 03/23/20 15:00 23:00 07:00 Intake Total 200 ml 200 ml Output Total 800 ml 250 ml Balance 200 ml -800 ml -50 ml Physical exam General: Alert, Cooperative, No acute distress Heart: Regular rate, Other (1/6 systolic murmur) Abdomen: Normal bowel sounds Problem list: Hypokalemia Hypomagnesemia Diarrhea Underweight Dizziness Anorexia Abdominal pain: GI consulted HTN :controlled HLP Severe protein calorie malnutrition Greater than 30 minutes spent on d/c home with home Discharge Information Condition at Discharge: Improved Follow Up: Weeks Disposition/Orders: D/C to Home w/ HH Scheduled Amlodipine Besylate (Amlodipine Besylate) 5 Mg Tablet, 5 MG PO DAILY for HTN, (Reported) Entered as Reported by: MABEL LEON RN on 03/21/201499 Last Action: Continued on 03/21/201699 by KRIS FLORES RN Aspirin (Aspirin) 81 Mg Tab.chew, 81 MG PO DAILY for heart health, (Reported) Entered as Reported by: MABEL LEON RN on 03/21/201499 Last Action: Continued on 03/21/201699 by KRIS FLORES RN Atorvastatin Calcium (Atorvastatin Calcium) 40 Mg Tablet, 80 MG PO HS for FOR CHOLESTEROL, #30 Ref 0 (Reported) Entered as Reported by: MABEL LEON RN on 03/21/201499 Last Action: Continued on 03/21/201699 by KRIS FLORES RN Biotin (Biotin) 5,000 Mcg Tab.rapdis, 1 TAB PO DAILY for vitamin for 30 Days, #30 Ref 0 (Reported) Entered as Reported by: MABEL LEON RN on 03/21/201499 Last Action: Converted on 03/21/201699 by KRIS FLORES RN Cyclobenzaprine Hcl (Cyclobenzaprine Hcl) 10 Mg Tablet, 1 TAB PO TID for muscle spasms, #90 (Reported) Entered as Reported by: MABEL LEON RN on 03/21/201499 Last Action: Continued on 03/21/201699 by KRIS FLORES RN Diphenhydramine Hcl (Benadryl) 25 Mg Capsule, 50 MG PO TID PRN for allergies, (Reported) Entered as Reported by: MABEL LEON RN on 03/21/201499 Last Action: Continued on 03/21/201699 by KRIS FLORES RN Famotidine (Famotidine) 40 Mg Tablet, 40 MG PO HS for GERD, (Reported) Entered as Reported by: MABEL LEON RN on 03/21/201499 Last Action: Converted on 03/21/201699 by KRIS FLORES RN Flaxseed Oil (Flax Oil) 1,000 Mg Capsule, 1,200 MG PO DAILY for vit, (Reported) Entered as Reported by: MABEL LEON RN on 03/21/201499 Last Action: Converted on 03/21/201699 by KRIS FLORES RN Mecobalamin (B12 Active) 1,000 Mcg Tab.chew, 1,000 MCG PO DAILY for vit, (Reported) Entered as Reported by: MABEL LEON RN on 03/21/201499 Last Action: Converted on 03/21/201699 by KRIS FLORES RN [place]-3 Fatty Acids/Fish Oil ([place] 3 Fish Oil Softgel) 1 Each Capsule.dr, 1 EACH PO DAILY for vit, (Reported) Entered as Reported by: MABEL LEON RN on 03/21/201499 Last Action: Converted on 03/21/201699 by KRIS FLORES RN Potassium Chloride (Klor-Con M20) 20 Meq Tab.er.prt, 40 MEQ PO DAILYWBKFT for Hypokalemia for 30 Days, #60 Prescribed by: FRANCES BRISCOE MD on 03/24/20 1252 Temazepam (Temazepam) 15 Mg Capsule, 1 CAP PO QHS for insomnia, #30 Ref 1 (Repo rted) Entered as Reported by: MABEL LEON RN on 03/21/201499 Last Action: Continued on 03/21/201699 by KRIS FLORES RN Ubidecarenone (Coq-10) 100 Mg Capsule, 400 MG PO DAILY for antioxidant, (Reported) Entered as Reported by: MABEL LEON RN on 03/21/201499 Last Action: Converted on 03/21/201699 by KRIS FLORES RN Valacyclovir Hcl (Valacyclovir) 1,000 Mg Tablet, 1,000 MG PO DAILY for Shingles, (Reported) Entered as Reported by: MABEL LEON RN on 03/21/20 1504 Last Action: Converted on 03/21/201699 by KRIS FLORES RN Scheduled PRN Ondansetron (Ondansetron Odt) 4 Mg Tab.rapdis, 1 TAB PO PRN Q8HRS PRN for NAUSEA/VOMITING, #16 (Reported) Entered as Reported by: MABEL LEON RN on 03/21/201499 Last Action: Reviewed on 03/21/20 1501 by MABEL LEON RN Miscellaneous Medications Hydrocodone Bit/Acetaminophen (Hydrocodone-Apap 5-325 ) 1 Each Tablet, 1 EACH PO, (Reported) Entered as Reported by: MOISES SPARKS on 08/23/13 1303 Last Action: Continued on 03/21/201699 by KRIS FLORES RN Discontinued Medications Pantoprazole Sodium (Protonix) 20 Mg Tablet.dr, 40 MG PO DAILY for GERD, (Reported) Entered as Reported by: MABEL LEON RN on 03/21/201499 Last Action: Converted on 03/21/20 1700 by KRIS FLORES RN Valacyclovir Hcl (Valacyclovir) 1,000 Mg Tablet, 1 TAB PO DAILY for ART, #30 Ref 3 (Reported) Entered as Reported by: MABEL LEON RN on 03/21/201499 Last Action: Discontinued on 03/21/20 1504 by MABEL LEON RN Justicifation of Admission Dx: Justifications for Admission: Justification of Admission Dx: N/A Chronic Renal Failure: Electrolyte Abnormality FRANCES BRISCOE MD Mar 24, 2020 13:00
--- NOTE | 2020-03-24 15:20 | NUR ---
Discharge Note: DOMONIQUE JOYNER [address] [place] [address] Discharge instructions and discharge home medications reviewed with Patient and a copy given. All questions have been answered and understanding verbalized. The following instructions and handouts were given: hypomagnesemia info, hypokalemia info, malnutrition, discharge instructions. Discontinued lines and drains: Peripheral IV intact. Patient discharged to Home w/services with Family Member via [facility] at 1520.
[2020-03-25] MEDS ORDERED: POTASSIUM CHLORIDE 20 MEQ TABLET.ER. PO ONE (08:00)
== END 2020-03-24 15:20 | disposition home health service (06) | DRG 640 ==
LOC: ER 11:27 → 2 SOUTH 12:52
PROVIDERS: ADMIT Internal Medicine; ATTEND Internal Medicine
DX: E87.6 Hypokalemia (principal); E43 Unspecified severe protein-calorie malnutrition; I47.1 Supraventricular tachycardia; E83.42 Hypomagnesemia; I10 Essential (primary) hypertension; C53.9 Malignant neoplasm of cervix uteri, unspecified; E78.5 Hyperlipidemia, unspecified; I12.9 Hypertensive chronic kidney disease with stage 1 through stage 4 chronic kidney disease, or unspecified chronic kidney disease; K21.9 Gastro-esophageal reflux disease without esophagitis; K57.90 Diverticulosis of intestine, part unspecified, without perforation or abscess without bleeding; K63.5 Polyp of colon; K64.8 Other hemorrhoids; N18.9 Chronic kidney disease, unspecified; Z79.82 Long term (current) use of aspirin; Z80.3 Family history of malignant neoplasm of breast; Z82.49 Family history of ischemic heart disease and other diseases of the circulatory system; Z83.3 Family history of diabetes mellitus; Z85.41 Personal history of malignant neoplasm of cervix uteri; Z87.891 Personal history of nicotine dependence; Z90.49 Acquired absence of other specified parts of digestive tract; Z90.710 Acquired absence of both cervix and uterus; Z98.82 Breast implant status; Z88.0 Allergy status to penicillin; Z88.2 Allergy status to sulfonamides; Z88.8 Allergy status to other drugs, medicaments and biological substances
CPT/HCPCS: 36415; 74018; 80048; 80053; 82436; 82570; 83735; 84100; 84133; 84300; 84443; 85025; 87493; 87505; 93005; 96365; 99285; J3475; J3480; J7030; G0378

== ENCOUNTER → 2020-07-23 | Outpatient (CLI) | payer MEDICARE ==
[~2020-07-23] MED LIST changes: +AMLO-186 PO; +ASPI-630 PO; +ATOR40TA59 PO; +BIOT5000 PO; +CYCL10TA2 PO; +DIPH25CA58 PO; +FAMO40TA4 PO; +FLAX10003 PO; +MECO10005 PO; +OMEG1CAP38 PO; +ONDA4TAB12 PO; +PANT20TA2 PO; +POTA20TA4 PO; +REGADENOSON 0.4 MG/5 ML DISP.SYRIN. IV ONE; +UBID100C26 PO; +VALA10008 PO
--- NOTE | 2020-07-23 15:26 | RAD ---
MR#: [id number] Date of Study: 07/23/2020 Ordering Physician: HERNAN GILBERT, Referring Physician: MERARI STRICKLAND Tech: RT Clifford Bañuelos) (N) APPROVED REPORT Test Type: Pharmacological Stress Nurse/Tech: Rain Rodgers RN Test Indications: Chest pressure Cardiac History: No known cardiac Medications: See Electronic Medical Record Medical History: See Electronic Medical Record Resting ECG: SR Resting Heart Rate: 93 bpm Resting Blood Pressure: 139/62mmHg Pretest Chest Pain: No chest pain Nurse/Tech Notes S1,S2 and lungs diminished throughout. Consent: The procedure was explained to the patient in lay terms. Informed consent was witnessed. Cody eout was entered into [employer]. History and Stress Test performed by RT Clifford Bañuelos) (N) Pharm. Details Pharmacologic stress testing was performed using 0.4mg per 5ml of regadenoson given intravenously ove r 7-10 seconds. Stress Symptoms Dyspnea (patient's oxygen saturation dropped to 80% during first minute thirty of test). Encouraged p atient to take big deep breaths and oxygen saturations improved to 94%. POST EXERCISE Reason for Termination: Infusion complete Target HR: 93 Max HR: 105 bpm 84% of Maximum Predicted HR: 124 bpm Max Blood Pressure: 137/60mmHg Blood Pressure response to exercise: Normal blood pressure response during stress. Heart Rate response to exercise: WNL Chest Pain: No. Arrhythmia: No. ST Change: No. INTERPRETATION Stress EKG Conclusion: Baseline EKG showed sinus rhythm. No ischemic changes at peak stress. No arr hythmias. Imaging Protocol IMAGE PROTOCOL: Rest Tc-99m/stress Tc-99m 1 day Rest: Stress: Viability: Radiopharm.Tc99m [id number] Sestamibi Dose10.5mCi 31mCi Duration 15min. 15min. Img Date 07/23/2020 07/23/2020 Inj-Img Ptvp32jfv. 50min. Rest Admin Site:IV - Left AntecubitalAdministrator:RT Clifford Bañuelos)(N) Stress Admin Site: IV - Left AntecubitalAdministrator: Orlando Maxwell, RT (R)(N) STRESS DATA End Diast. Vol.9.0mlAv. Heart Rate91.0bpm End Syst. Vol.1.0mlCO Index BSA0.0L/min Myocardial Mass40.0gEject. Eqwqsbym29.0% Stress Rates Pk. Fill Rate8.65EDV/secLVtime Pk. Fill 89.95msec Pk. Empty Rate6.34ESV/secLVtime Pk. Dcsxt214.25msec /3 Pk. Fill3.41EDV/sec Stress Scores Regional WT2.00Summed WT11.00 Regional WM0.00Summed WM12.00 Study quality was poor. Left Ventricular size was Normal at Rest and Stress. Lung uptake was . Left Ventricular ejection fraction is 65%. The rest and stress images show normal perfusion, normal contraction and thickening. LV Perf. Quant 17 Seg. SSS0.00 17 Seg. SRS0.00 17 Seg. SDS0.00 Stress Defect Extent (% LAD)0.00Rest Defect Extent (% LAD)0.00Rev. Defect Extent (% LAD)0.00 Stress Defect Extent (% LCX) 0.00Rest Defect Extent (% LCX)0.00Rev. Defect Extent (% LCX)0.00 Stress Defect Extent (% RCA)0.00Rest Defect Extent (% RCA)0.00Rev. Defect Extent (% RCA)0.00 Stress Defect Extent (% GOPI)0.00Rest Defect Extent (% GOPI)0.00Rev. Defect Extent (% GOPI)0.00 Conclusion 1. Regadenoson cardioisotope stress test did not show any evidence of ischemia or infarct. 2. Normal left ventricular systolic function with ejection fraction calculated at 65%. 3. Low risk for cardiac events. Signed by : Bhupinder Castellanos, Electronically Approved : 07/23/2020 15:25:24
== END ==
LOC: NM 10:57
PROVIDERS: ATTEND Internal Medicine Cardiovascular Disease
DX: R07.89 Other chest pain (principal)
CPT/HCPCS: 78452; 93017; A9500; J2785

== ENCOUNTER → 2020-12-06 | Outpatient (CLI) | payer MEDICARE ==
[~2020-12-06] MED LIST changes: -REGADENOSON 0.4 MG/5 ML DISP.SYRIN. IV ONE
--- NOTE | 2020-12-06 15:52 | RAD ---
MR#: [id number] Date of Study: 12/06/2020 Ordering Physician: HERNAN GILBERT, Referring Physician: HERNAN GILBERT, Tech: APPROVED REPORT Patient Location: OUT-PATIENT Indications AAA Risk Factors Smoking Duplex Results A/PTransverseLongitudinal Proximal Aorta 2.2cm Mid Aorta 1.1cm Distal Aorta 0.8cm Rt. Common Iliac Artery.95cm Lt. Common Iliac Artery 1cm Doppler VelocityWaveform Proximal Aorta 55.7 cm/sec Aorta Mid. 93.8 cm/sec Distal Aorta 107.4 cm/sec Rt. Common Iliac Tjbava840.4 cm/sec Lt. Common Iliac Artery 156.8 cm/sec Findings Grayscale images of the abdominal aorta demonstrates moderate diffuse atherosclerotic plaque. Veloci ties are within normal limits. The right and left iliacs on limited images demonstrate normal dimens ion. No evidence of abdominal aortic aneurysm identified. No significant aortoiliac occlusive disea se noted based on velocities on limited images. Critical Notification Critical Value: No <Conclusion> 1. No evidence of abdominal aortic aneurysm. Signed by : Krishna Artis, Electronically Approved : 12/06/2020 15:52:24
--- NOTE | 2020-12-06 16:45 | CARD ---
MR#: [id number] Date of Study: 12/06/2020 Ordering Physician: HERNAN GILBERT, Referring Physician: HERNAN GILBERT, Tech: Rosalinda Elizalde [facility] APPROVED REPORT EXAM: Two-dimensional and M-mode echocardiogram with Doppler and color Doppler. Other Information Quality : AverageHR: 74bpm Rhythm : NSR INDICATION Palpitations RISK FACTORS Hypertension Hyperlipidemia 2D DIMENSIONS Left Atrium(2D)2.0 (1.6-4.0cm)IVSd1.2 (0.7-1.1cm) Aortic Root(2D)2.7 (2.0-3.7cm)LVDd2.4 (3.9-5.9cm) LVOT Diameter2.1 (1.8-2.4cm)PWd1.2 (0.7-1.1cm) LVDs1.3 (2.5-4.0cm)FS (%) 45.9 % SV16.4 mlLVEF(%)79.4 (>50%) Aortic Valve AoV Peak Jeremi.98.3cm/sAoV VTI21.8cm AO Peak GR.3.9mmHgLVOT Peak Jeremi.70.9cm/s AO Mean GR.2mmHgAVA (VMAX)2.54cm2 Mitral Valve MV E Ruibyasx28.0cm/sMV DECEL [id number] MV A Cskxzhzp61.8cm/sE/A Ratio0.9 Pulmonary Valve PV Peak Emgpcjoj69.3cm/s Tricuspid Valve TR P. Bazrbywl083dh/sTR Peak Gr.26mmHg LEFT VENTRICLE The left ventricle is normal size. There is moderate concentric left ventricular hypertrophy. The lef t ventricular systolic function is normal and the ejection fraction is within normal range. EF 65% Th ere is normal LV segmental wall motion. Transmitral Doppler flow pattern is Grade I-abnormal relaxati on pattern. RIGHT VENTRICLE The right ventricle is normal size. There is normal right ventricular wall thickness. The right ventr icular systolic function is normal. ATRIA The left atrium size is normal. The right atrium size is normal. The interatrial septum is intact wit h no evidence for an atrial septal defect or patent foramen ovale as noted on 2-D or Doppler imaging. AORTIC VALVE The aortic valve is normal in structure and function. Doppler and Color Flow revealed no significant aortic regurgitation. There is no significant aortic valvular stenosis. MITRAL VALVE The mitral valve is normal in structure and function. There is no evidence of mitral valve prolapse. There is no mitral valve stenosis. Doppler and Color-flow revealed trace mitral regurgitation. TRICUSPID VALVE The tricuspid valve is normal in structure and function. Doppler and Color Flow revealed trace tricus pid regurgitation. Estimated PAP 29 mmHg. There is no tricuspid valve stenosis. PULMONIC VALVE Doppler and Color Flow revealed no pulmonic valvular regurgitation. There is no pulmonic valvular rolan nosis. GREAT VESSELS The aortic root is normal in size. The ascending aorta is normal in size. The IVC is normal in size a nd collapses >50% with inspiration. PERICARDIAL EFFUSION There is no evidence of significant pericardial effusion. Critical Notification Critical Value: No <Conclusion> There is moderate concentric left ventricular hypertrophy. The left ventricular systolic function is normal and the ejection fraction is within normal range. EF 65% There is normal LV segmental wall motion. Signed by : Krishna Artis, Electronically Approved : 12/06/2020 16:45:20
== END ==
LOC: US 08:36
PROVIDERS: ATTEND Internal Medicine Cardiovascular Disease
DX: I71.4 Abdominal aortic aneurysm, without rupture (principal); I70.0 Atherosclerosis of aorta; R06.09 Other forms of dyspnea; I51.7 Cardiomegaly
CPT/HCPCS: 76770; 93306

== ENCOUNTER → 2021-02-08 | Outpatient (CLI) | payer MEDICARE ==
--- NOTE | 2021-02-08 16:00 | RAD ---
EXAM: ULTRASOUND SOFT TISSUE NECK CLINICAL HISTORY: Adenopathy anterior right neck COMPARISON: None TECHNIQUE: Ultrasound examination of the anterior right neck in the area of concern was performed FINDINGS: There is a small lymph node with normal morphology in the anterior right neck adjacent to the interna l carotid artery measuring 0.7 x 0.4 x 0.2 cm. No enlarged lymph nodes, soft tissue mass, or fluid co llection. IMPRESSION: Small normal-appearing lymph node in the right neck in the area of palpable abnormality. Electronically signed by: Krysta Dave MD (02/08/2021 3:57 PM) [id number]
== END ==
LOC: US 14:01
PROVIDERS: ATTEND Nurse Practitioner Family
DX: R59.1 Generalized enlarged lymph nodes (principal)
CPT/HCPCS: 76536

== ENCOUNTER 2021-05-30 15:35 | Emergency (ER) | payer MEDICARE ==
[~2021-05-30] VITALS: Ht 160 cm; Wt 49.2 kg
[~2021-05-30 15:35] MED LIST changes: +POTA-121 PO; -POTA20TA4 PO
[2021-05-30] MEDS ORDERED: LIDO:MAALOX 1:1 20 ML SINGLE DOSE. SWSW ONE (15:45)
[2021-05-30] MEDS ORDERED: ASPIRIN 325 MG TABLET PO ONE (15:45)
[2021-05-30] MEDS ORDERED: fentaNYL PF VIAL 100 MCG/2 ML VIAL IV PRN (15:45)
[2021-05-30 16:06] LABS: BASO % 0 % (0-3); EOS % 0 % (0-3); HEMATOCRIT 41.4 % (36.0-47.0); HEMOGLOBIN 14.1 g/dL (12.0-15.5); LYMPH # 2.3 x10^3/uL (1.0-4.8); LYMPH % 18 % (24-48); MEAN CORPUSCULAR HEMOGLOBIN 35 pg (25-35); MEAN CORPUSCULAR HGB CONC 34 g/dL (31-37); MEAN CORPUSCULAR VOLUME 103 fL (79-100); MONO # 1.1 x10^3/uL (0.0-1.1); MONO % 8 % (0-9); NEUT # 9.3 x10^3/uL (1.8-7.7); NEUT % 73 % (31-73); PLATELET COUNT 296 x10^3/uL (140-400); RED BLOOD COUNT 4.01 x10^6/uL (3.50-5.40); RED CELL DISTRIBUTION WIDTH 14.6 % (11.5-14.5); WHITE BLOOD COUNT 12.8 x10^3/uL (4.0-11.0)
--- NOTE | 2021-05-30 16:17 | RAD ---
Single AP view of the chest. Comparison: None. Indication: Chest pain Findings: There are peripherally calcified breast implants identified. The heart is not enlarged. There is no pneumothorax or effusion. No air space or interstitial disease. Impression: 1. No acute cardiopulmonary process. Electronically signed by: Kristopher Doan MD (05/30/2021 4:15 PM) [facility]
[2021-05-30 16:19] LABS: CALCIUM 9.9 mg/dL (8.5-10.1); CREATININE 0.9 mg/dL (0.6-1.0); GFR 61.2; POTASSIUM 3.8 mmol/L (3.5-5.1)
[2021-05-30 16:26] LABS: MAGNESIUM 1.8 mg/dL (1.8-2.4); TOTAL BILIRUBIN 0.4 mg/dL (0.2-1.0)
[2021-05-30] MEDS: NITROGLYCERIN SUBLINGUAL 0.4 MG BOTTLE OF 25. SL PRN ×2 (16:29→16:30)
[2021-05-30 18:16] LABS: BILIRUBIN,URINE NEGATIVE (NEG); CLARITY,URINE CLEAR; COLOR,URINE YELLOW; NITRITE,URINE NEGATIVE (NEG); PROTEIN,URINE NEGATIVE (NEG-TRACE); UROBILINOGEN,URINE 0.2 mg/dL (0.2 mg/dL)
[2021-05-30 18:26] LABS: BACTERIA,URINE 0 /HPF (0-FEW); RBC,URINE 0 /HPF (0-2); WBC,URINE 0 /HPF (0-4)
[2021-05-30 18:45] VITALS: BP 186/81
--- NOTE | 2021-05-30 18:53 | PHYS DOC ---
Past Medical History Past Medical History: Cancer, GERD Additional Past Medical Histor: HEART PALPATATIONS, CERVICAL CANCER, MITRIAL VALVE PROLAPSE, SHINGLES Past Surgical History: Appendectomy, Cholecystectomy, Hysterectomy, Other Additional Past Surgical Histo: cervical ca, BREAST IMPLANTS Smoking Status: Former Smoker Alcohol Use: None Drug Use: None General Adult EDM: Chief Complaint: GI PROBLEM HPI: HPI: Patient is a 75 year old female with hx of GERD who presents with 3/10 epigastric abdominal pain that began at 2 PM. Patient states it feels like indigestion. Patient states when the pain began she felt nauseous. She states the son insisted she has to come to the ED, she states at that point she felt her blood pressure was going up and she was short of air. Patient denies any shortness of breath in the ED. Denies any chest pain. Denies anything specifically exacerbating or relieving her epigastric pain Review of Systems: Review of Systems: Constitutional: Denies fever or chills. [] Eyes: Denies change in visual acuity. [] HENT: Denies nasal congestion or sore throat. [] Respiratory: Denies cough or shortness of breath. [] Cardiovascular: Denies chest pain or edema. [] GI: Reports epigastric abdominal pain, nausea, denies vomiting, bloody stools or diarrhea. [] : Denies dysuria. [] Musculoskeletal: Denies back pain or joint pain. [] Integument: Denies rash. [] Neurologic: Denies headache, focal weakness or sensory changes. [] Psychiatric: Denies depression or anxiety. [] Heart Score: C/O Chest Pain: N/A Risk Factors: Risk Factors: DM, Current or recent (<one month) smoker, HTN, HLP, family history of CAD, obesity. Risk Scores: Score 0 - 3: 2.5% MACE over next 6 weeks - Discharge Home Score 4 - 6: 20.3% MACE over next 6 weeks - Admit for Clinical Observation Score 7 - 10: 72.7% MACE over next 6 weeks - Early Invasive Strategies Current Medications: Current Medications Medications (Trade) Dose Ordered Sig/Antwan Start Time Stop Time Status Last Admin Dose Admin Aspirin (Magi Aspirin) 325 mg 1X ONCE 05/30/21 15:45 05/30/21 15:46 DC Fentanyl Citrate (Fentanyl 2ml Vial) 50 mcg PRN Q15MIN PRN 10/14/21 15:45 05/31/21 15:44 05/30/21 16:31 50 MCG Multi-Ingredient Mouthwash/Gargle (Gi Cocktail) 20 ml 1X ONCE 05/30/21 15:45 05/30/21 15:46 DC 05/30/21 16:28 20 ML Nitroglycerin (Nitrostat) 0.4 mg PRN Q5MIN PRN 05/30/21 15:45 05/31/21 15:44 05/30/21 16:30 0.4 MG Allergies: Allergies: Allergies Coded Allergies Type Severity Reaction Last Updated Verified Penicillins Allergy Severe 02/21/20 Yes Sulfa (Sulfonamide Antibiotics) Allergy Intermediate 02/21/20 Yes clarithromycin Allergy Intermediate 02/21/20 Yes morphine Allergy Intermediate 02/21/20 Yes Physical Exam: PE: Constitutional: Well developed, well nourished, no acute distress, non-toxic appearance. [] HENT: Normocephalic, atraumatic, bilateral external ears normal, oropharynx moist, no oral exudates, nose normal. [] Eyes: PERRLA, EOMI, conjunctiva normal, no discharge. [] Neck: Normal range of motion, no tenderness, supple, no stridor. [] Cardiovascular:Heart rate regular rhythm, no murmur [] Lungs & Thorax: Bilateral breath sounds clear to auscultation [] Abdomen: Bowel sounds normal, soft, mild epigastric tenderness, no right upper quadrant or right lower quadrant tenderness, no masses, no pulsatile masses. [] Skin: Warm, dry, no erythema, no rash. [] Back: No tenderness, no CVA tenderness. [] Extremities: No tenderness, no cyanosis, no clubbing, ROM intact, no edema. [] Neurologic: Alert and oriented X 3, normal motor function, normal sensory function, no focal deficits noted. [] Psychologic: Affect normal, judgement normal, mood normal. [] Current Patient Data: Labs: Laboratory Tests Test 05/30/21 15:50 05/30/21 18:00 White Blood Count 12.8 x10^3/uL (4.0-11.0) H Red Blood Count 4.01 x10^6/uL (3.50-5.40) Hemoglobin 14.1 g/dL (12.0-15.5) Hematocrit 41.4 % (36.0-47.0) Mean Corpuscular Volume 103 fL (79-100) H Mean Corpuscular Hemoglobin 35 pg (25-35) Mean Corpuscular Hemoglobin Concent 34 g/dL (31-37) Red Cell Distribution Width 14.6 % (11.5-14.5) H Platelet Count 296 x10^3/uL (140-400) Neutrophils (%) (Auto) 73 % (31-73) Lymphocytes (%) (Auto) 18 % (24-48) L Monocytes (%) (Auto) 8 % (0-9) Eosinophils (%) (Auto) 0 % (0-3) Basophils (%) (Auto) 0 % (0-3) Neutrophils # (Auto) 9.3 x10^3/uL (1.8-7.7) H Lymphocytes # (Auto) 2.3 x10^3/uL (1.0-4.8) Monocytes # (Auto) 1.1 x10^3/uL (0.0-1.1) Eosinophils # (Auto) 0.0 x10^3/uL (0.0-0.7) Basophils # (Auto) 0.0 x10^3/uL (0.0-0.2) Sodium Level 139 mmol/L (136-145) Potassium Level 3.8 mmol/L (3.5-5.1) Chloride Level 103 mmol/L (98-107) Carbon Dioxide Level 25 mmol/L (21-32) Anion Gap 11 (6-14) Blood Urea Nitrogen 22 mg/dL (7-20) H Creatinine 0.9 mg/dL (0.6-1.0) Estimated GFR (Cockcroft-Gault) 61.2 BUN/Creatinine Ratio 24 (6-20) H Glucose Level 114 mg/dL (70-99) H Calcium Level 9.9 mg/dL (8.5-10.1) Magnesium Level 1.8 mg/dL (1.8-2.4) Total Bilirubin 0.4 mg/dL (0.2-1.0) Aspartate Amino Transferase (AST) 19 U/L (15-37) Alanine Aminotransferase (ALT) 38 U/L (14-59) Alkaline Phosphatase 124 U/L (46-116) H Troponin I Quantitative < 0.017 ng/mL (0.000-0.055) ZL-Yag-V-Type Natriuretic Peptide 178 pg/mL (0-124) H Total Protein 8.0 g/dL (6.4-8.2) Albumin 4.0 g/dL (3.4-5.0) Albumin/Globulin Ratio 1.0 (1.0-1.7) Thyroid Stimulating Hormone (TSH) 1.304 uIU/mL (0.358-3.74) Urine Collection Type Unknown Urine Color Yellow Urine Clarity Clear Urine pH 6.0 (<5.0-8.0) Urine Specific Magazine 1.015 (1.000-1.030) Urine Protein Negative mg/dL (NEG-TRACE) Urine Glucose (UA) Negative mg/dL (NEG) Urine Ketones (Stick) Negative mg/dL (NEG) Urine Blood Negative (NEG) Urine Nitrite Negative (NEG) Urine Bilirubin Negative (NEG) Urine Urobilinogen Dipstick 0.2 mg/dL (0.2 mg/dL) Urine Leukocyte Esterase Negative (NEG) Urine RBC 0 /HPF (0-2) Urine WBC 0 /HPF (0-4) Urine Bacteria 0 /HPF (0-FEW) Urine Mucus Slight /LPF Laboratory Tests 05/30/21 15:50 Laboratory Tests 05/30/21 15:50 Vital Signs: Vital Signs Date Time Temp Pulse Resp B/P (MAP) Pulse Ox O2 Delivery O2 Flow Rate FiO2 05/30/21 17:45 64 172/73 (106) 99 Room Air 05/30/21 16:31 16 05/30/21 15:43 98.1 98.1 EKG: EK interpreted by Dr. Carey sinus rhythm heart rate 71 no STEMI Radiology/Procedures: Radiology/Procedures: []PROCEDURE: PORTABLE CHEST 1V Single AP view of the chest. Comparison: None. Indication: Chest pain Findings: There are peripherally calcified breast implants identified. The heart is not enlarged. There is no pneumothorax or effusion. No air space or interstitial disease. Impression: 1. No acute cardiopulmonary process. Electronically signed by: Kristopher Doan MD (05/30/2021 4:15 PM) [facility] DICTATED and SIGNED BY: KRISTOPHER DOAN MD DATE: 05/30/21 [id number] 0 Course & Med Decision Making: Course & Med Decision Making Pertinent Labs and Imaging studies reviewed. (See chart for details) This is a 75-year-old female patient presented to the ED today with epigastric abdominal pain that began at 2 PM today. Patient states it feels like indigestion. She has history of acid reflux. EKG is negative in the ED. CBC CMP troponin lipase with nothing really acute. UA negative for infection Blood pressure on arrival to the ED was 190/85 with a heart rate in the 60s, after being in the ED for a while blood pressure has come down to 155/73 with a heart rate of 60s. Patient denies any history of hypertension. I recommended she follows up with the PCP for BP management. She was given a GI cocktail and states she is feeling better. She is requesting to be discharged. She was instructed to follow-up with her own PCP next week Jodie Disclaimer: Jodie Disclaimer: This electronic medical record was generated, in whole or in part, using a voice recognition dictation system. Departure Departure Impression: Primary Impression: Epigastric abdominal pain Additional Impression: High blood pressure Qualified Codes: I10 - Essential (primary) hypertension Disposition: HOME / SELF CARE / HOMELESS Condition: STABLE Referrals: LINDA SETHI APRN (PCP) follow up in one week Patient Instructions: Abdominal Pain (Nonspecific) Additional Instructions: You were evaluated in the emergency room, your work-up is negative for any acute findings. We encourage you to follow-up with your primary care doctor as soon as you can. Your blood pressure is running high please monitor it closely and let your primary care doctor know tomorrow. HEBERT CARRIZALES APRN May 30, 2021 18:53
== END 2021-05-30 19:00 | disposition home or self-care (01) ==
LOC: ER 15:35
DX: R10.13 Epigastric pain (principal); I10 Essential (primary) hypertension; R11.0 Nausea; K21.9 Gastro-esophageal reflux disease without esophagitis; Z87.891 Personal history of nicotine dependence; Z90.89 Acquired absence of other organs; Z90.49 Acquired absence of other specified parts of digestive tract; Z90.710 Acquired absence of both cervix and uterus; Z88.0 Allergy status to penicillin; Z88.1 Allergy status to other antibiotic agents; Z88.2 Allergy status to sulfonamides; Z88.5 Allergy status to narcotic agent
CPT/HCPCS: 36415; 71045; 80053; 81001; 83735; 83880; 84443; 84484; 85025; 93005; 96374; 99285; J3010

== ENCOUNTER → 2021-06-10 | Outpatient (CLI) | payer MEDICARE ==
[2021-05-30 18:45] VITALS: BP 186/81
[~2021-06-10] MED LIST changes: +CYCL10TA19 PO; -CYCL10TA2 PO
--- NOTE | 2021-06-11 10:46 | RAD ---
Bilateral digital screening mammogram to include digital breast tomosynthesis (3-D mammography) 06/10 CLINICAL HISTORY: Screening study. Digital MLO and CC mammograms of both breasts were obtained. Additionally digital breast tomosynthesi s images (3-D mammography) of both breasts in the CC and MLO projections were obtained. Comparison studies are dated 07/29/2019 and 08/08/2016. The breast parenchyma is heterogeneously dense which could obscure a lesion on mammography (breast de nsity C). Densely calcified breast implants are again seen. Benign-appearing calcifications are seen within both breasts. No spiculated mass is seen. No malignant appearing calcification or area of arch itectural distortion is noted. Digital breast tomosynthesis images demonstrate no spiculated mass. No malignant appearing calcificat ion is seen. Impression: BI-RADS Category 2: Benign Findings.. There is no mammographic evidence of malignancy. R outine yearly screening mammography is recommended for follow-up. This examination was reviewed with the aid of computer-aided detection. A mammogram does not have 100% sensitivity and therefore a negative imaging study should not delay fu rther work up of a suspicious abnormality. Patient information is entered into the reminder system with a target due date for the next screening mammogram of 06/10/2022. "Our facility is accredited by the [employer] Mammography Program." Electronically signed by: Hi Boogie MD (06/11/2021 10:43 AM) [id number]
== END ==
LOC: MAMMO 14:17
PROVIDERS: ATTEND Nurse Practitioner Family
DX: Z12.31 Encounter for screening mammogram for malignant neoplasm of breast (principal)
CPT/HCPCS: 77067

== ENCOUNTER → 2021-06-10 | Outpatient (CLI) | payer MEDICARE ==
[2021-05-30 18:45] VITALS: BP 186/81
--- NOTE | 2021-06-10 15:20 | RAD ---
EXAM: Chest CT without intravenous contrast. HISTORY: Pulmonary nodules. TECHNIQUE: Computed tomographic images of the chest were obtained without contrast. Multiplanar refor matting was performed. *One or more of the following individualized dose reduction techniques were utilized for this examina tion: 1. Automated exposure control. 2. Adjustment of the mA and/or kV according to patient size. 3. Use of iterative reconstruction technique. COMPARISON: 05/27/2019. FINDINGS: The heart is normal in size. There is calcified atherosclerotic plaque involving the aorta, aortic great vessels and coronary arteries. There are prominent mediastinal and hilar lymph nodes. F or reference purposes, there is a 1.5 cm right paratracheal lymph node. There are calcified granuloma s. There is moderate emphysema. There is no pneumothorax or pleural effusion. There is bilateral basilar atelectasis or scarring. There is no suspicious pulmonary nodule. There are bilateral breast implants with intracapsular rupture and fibrous capsular calcification. Th ere is stable increased density within the inferior right breast. There is no acute finding involving the upper abdomen. There are degenerative changes involving the spine. There are few chronic minimal superior endplate depressions at the upper thoracic levels. There is no acute or suspicious osseous finding. IMPRESSION: 1. No acute thoracic finding. 2. Moderate emphysema with bilateral basilar predominant atelectasis or scarring. 3. Stable prominent mediastinal and hilar lymph nodes. The long-term stability favors benignity. Electronically signed by: Ro Murphy MD (06/10/2021 3:18 PM) [id number]
== END ==
LOC: CT 16:27
PROVIDERS: ATTEND Internal Medicine Pulmonary Disease
DX: J43.9 Emphysema, unspecified (principal); I25.10 Atherosclerotic heart disease of native coronary artery without angina pectoris; I70.0 Atherosclerosis of aorta; J84.10 Pulmonary fibrosis, unspecified; R91.1 Solitary pulmonary nodule; Z98.890 Other specified postprocedural states
CPT/HCPCS: 71250